=== PATIENT | male | born 1935 | race Caucasian/White ===

== ENCOUNTER 2017-08-24 12:21 | Emergency (ER) | payer OTHER, MEDICARE ==
[~2017-08-24] VITALS: Ht 172.7 cm; Wt 90.7 kg
[~2017-08-24 12:21] MED LIST: ALEVE220 M1; ALEVE220 M1 PO; ALLOPURINOL 30300 M1 PO; ARTIFICIAL TEA1 EACH OP; ARTIFICIAL TEAR15 M1 OPHTHALMIC; ASPIR 8181 MG PO; ATORVASTATIN CA40 MG PO; BISACODYL SUPP10 MG RE; BLADDER MED; CARBIDOPA-LEVO1 EAC9 PO; CELEBREX 200 M200 M1 PO; CELEBREX 200 M200 MG PO; COLACE100 MG PO; COREG3.125 MG PO; COUMADIN 2.5MG2.5 M1 PO; COUMADIN 5 MG TA5 M1 PO; CYMBALTA30 MG PO; CYMBALTA60 MG PO; DEEP SEA NASAL44 M1 NASAL; DESITIN113 GM TOP; DICLOFENAC SOD2.5 ML OP; DOXYCYCLINE 10100 M1 PO; DUONEB 2.5-0.5 M3 ML INH; ENOXAPARIN30 MG/0.3 SUBQ; ENTACAPONE200 M1 PO; FLOMAX0.4 MG PO; FLONASE 0.05%50 MCG NASAL; FOLIC ACID 40400 MC1 PO; FOLIC ACID 40400 MCG PO; GABAPENTIN300 MG PO; GELUSIL TABLET1 EACH PO; GLUCOSAMINE &1 EACH PO; GLUCOSAMINE HC500 MG PO; HYTRIN 2MG CAPSU2 M1 PO; KEFLEX500 M1 PO; KEPPRA 500 MG500 M1 PO; LANOXIN 0.120.125 M1 PO; LASIX 20 MG TAB20 MG PO; LIPITOR80 MG PO; LORATIDINE 10 M10 M1 PO; MIRALAX17 GM PO; MIRALAX255 GM PO; MOM; NEURONTIN 300300 M1 PO; NORCO 10-325 T1 EACH PO; NORCO 5-325 TA1 EACH PO; PERCOCET 7.5-31 EACH PO; PLAVIX 75 MG TA75 M1 PO; PRED-FORTE OPHTH1 M1 OP; PREDNISONE 10 M10 MG PO; PRESERVISION L1 EACH PO; PRESERVISION S1 EACH PO; PRESERVISION T1 EACH PO; REQUIP 0.25 M0.25 MG PO; REQUIP 1 MG TABL1 M1 PO; REQUIP1 MG PO; RESTORIL15 MG PO; SANTYL OINTMENT30 G1 TP; SENNA8.6 MG PO; SINEMET 25-1001 EAC1 PO; SINEMET 25/1001 TAB PO; SORINE 80 MG TA80 MG PO; SOTALOL 120 MG120 M1 PO; SULINDAC 200MG200 M1 PO; TACLONEX OINTME60 GM TP; TYLENOL325 MG PO; VESICARE10 M1 PO; VITAMIN B-12500 MCG PO; VITAMIN D31000 UNI2 PO; VOLTAREN GEL 1100 G2 TOP; XANAX 0.5 MG0.5 MG PO; [UNRECOGNIZED DRUG - OTHER]
[2017-08-24] MEDS ORDERED: LASIX 20 MG TAB20 MG PO (13:28)
[2017-08-24] MEDS ORDERED: SENNA8.6 MG PO (13:38)
[2017-08-24] MEDS ORDERED: HYDROCODONE-AP1 EAC6 PO (13:38)
== END 2017-08-24 14:06 | disposition home or self-care (01) ==
LOC: ER 12:21
DX: S22.31XA Fracture of one rib, right side, initial encounter for closed fracture (principal); E78.00 Pure hypercholesterolemia, unspecified; I48.91 Unspecified atrial fibrillation; F32.9 Major depressive disorder, single episode, unspecified; M10.9 Gout, unspecified; Z95.1 Presence of aortocoronary bypass graft; I11.0 Hypertensive heart disease with heart failure; I50.9 Heart failure, unspecified; M54.9 Dorsalgia, unspecified; G89.29 Other chronic pain; Z96.651 Presence of right artificial knee joint; M19.90 Unspecified osteoarthritis, unspecified site; Z88.1 Allergy status to other antibiotic agents; Z88.2 Allergy status to sulfonamides; Z88.5 Allergy status to narcotic agent; W19.XXXA Unspecified fall, initial encounter; Y93.01 Activity, walking, marching and hiking; Y92.89 Other specified places as the place of occurrence of the external cause; Y99.8 Other external cause status

== ENCOUNTER → 2017-09-25 | Outpatient (CLI) | payer OTHER, MEDICARE ==
[~2017-09-25] MED LIST changes: +HYDROCODONE-AP1 EAC6 PO
== END ==
LOC: CAT 09:14
DX: M25.775 Osteophyte, left foot (principal); I25.10 Atherosclerotic heart disease of native coronary artery without angina pectoris

== ENCOUNTER → 2018-11-10 | Outpatient (CLI) | payer OTHER, MEDICARE ==
[~2018-11-10] MED LIST changes: +CARBIDOPA-LEVO1 EAC6 PO; +GLUCOSAMINE CH1 EA10 PO; +HYDROCODONE-AP1 EA11 PO; +PROBIOTIC1 EAC1 PO; +RESTORIL7.5 MG PO; +VITAMIN B-121000 MCG PO; +VOLTAREN GEL 1100 G2
== END ==
LOC: CAT 13:54
DX: M48.56XA Collapsed vertebra, not elsewhere classified, lumbar region, initial encounter for fracture (principal); M47.26 Other spondylosis with radiculopathy, lumbar region; M48.061 Spinal stenosis, lumbar region without neurogenic claudication

== ENCOUNTER → 2019-03-12 | Day surgery (SDC) | payer OTHER, MEDICARE ==
[~2019-03-12] VITALS: Ht 172.7 cm; Wt 83.5 kg
[~2019-03-12] MED LIST changes: +ARICEPT10 M1 PO; +HYDROCODON-ACE1 EAC8 PO; +TRAZODONE HCL100 MG PO; -VOLTAREN GEL 1100 G2
--- NOTE | ~2019-03-12 | O ---
[facility] [place] [address] OPERATIVE REPORT Name: MARIBELL SUTTON Room #: REG [facility]#: [id number] Admission: 03/12/19 Attend Phys: Gerald Hoyt MD Discharge: Date of : 37 Report #: [id number] THIS REPORT FOR: //name// CC: [facility] physician/PCP Gerald Hoyt DATE OF SERVICE: 03/12/2019 PREOPERATIVE DIAGNOSIS: Left hindfoot osteophyte. POSTOPERATIVE DIAGNOSIS: Left hindfoot osteophyte. PROCEDURE: Left foot osteophyte excision. SURGEON: Dr. Gerald Hoyt. STAFFING CONSULTANT: Gabriella Ray. ANESTHESIA: General. ESTIMATED BLOOD LOSS: Minimal. DRAINS: No drains. TOURNIQUET TIME: 20 minutes. DESCRIPTION OF PROCEDURE: The patient was brought to the operating room where he was placed under general anesthesia. Once under adequate general anesthesia, his left lower extremity was prepped and draped in sterile manner. The extremity was elevated, exsanguinated, tourniquet placed to 250 mmHg. A medial incision 3 cm in length was made overlying the medial hindfoot osteophyte. This was dissected sharply down to the bone, which was then exposed with a 15 blade. Once completely exposed, a sagittal saw was used to resect the osteophyte. Once complete, any other scar tissue at the plantar foot was removed as well with a rongeur. The wound was then irrigated copiously and closed with 2-0 Vicryl in subcutaneous tissues and kristie for the skin. The wounds were dressed with Xeroform, 4 x 4s, and sterile soft compressive dressing was placed. Tourniquet was let down at 15 minutes. Toes were pink and warm with good capillary refill. There were no complications from the procedure. The patient tolerated the procedure well and went to the recovery room without incident. By: [id number] [id number] Gerald Hoyt MD /nt
[2019-03-12 12:00] VITALS: BP 153/76
== END | disposition home or self-care (01) ==
LOC: OR 11:07
DX: M25.775 Osteophyte, left foot (principal); I11.0 Hypertensive heart disease with heart failure; I50.9 Heart failure, unspecified; G62.9 Polyneuropathy, unspecified; I48.91 Unspecified atrial fibrillation; E78.5 Hyperlipidemia, unspecified; G47.30 Sleep apnea, unspecified; G20 Parkinson's disease; M10.9 Gout, unspecified; N40.0 Benign prostatic hyperplasia without lower urinary tract symptoms; M54.5 Low back pain; G89.29 Other chronic pain; Z98.890 Other specified postprocedural states; Z98.42 Cataract extraction status, left eye; Z79.899 Other long term (current) drug therapy; Z95.1 Presence of aortocoronary bypass graft; Z87.891 Personal history of nicotine dependence; Z96.653 Presence of artificial knee joint, bilateral; Z79.01 Long term (current) use of anticoagulants; Z88.2 Allergy status to sulfonamides; Z88.8 Allergy status to other drugs, medicaments and biological substances
CPT/HCPCS: 50010; 50101; 50386; 50951; 51412; 56524; 57091; 57179; 62110; 62900; 70005

== ENCOUNTER → 2019-08-10 | Outpatient (CLI) | payer OTHER, MEDICARE | LOC: SJCVCIMAG 08:28 | PROVIDERS: ATTEND Internal Medicine | DX: I08.3 Combined rheumatic disorders of mitral, aortic and tricuspid valves (principal); I65.23 Occlusion and stenosis of bilateral carotid arteries; R94.31 Abnormal electrocardiogram [ECG] [EKG]; I48.21 Permanent atrial fibrillation; I11.0 Hypertensive heart disease with heart failure; I50.32 Chronic diastolic (congestive) heart failure; G20 Parkinson's disease; G47.33 Obstructive sleep apnea (adult) (pediatric); E78.5 Hyperlipidemia, unspecified; I25.810 Atherosclerosis of coronary artery bypass graft(s) without angina pectoris; Z95.1 Presence of aortocoronary bypass graft; Z79.82 Long term (current) use of aspirin; Z79.899 Other long term (current) drug therapy; Z87.891 Personal history of nicotine dependence ==

== ENCOUNTER 2019-12-15 23:02 | Inpatient (IN) | payer OTHER, MEDICARE ==
[~2019-12-15] VITALS: Ht 172.7 cm; Wt 81.9 kg
--- NOTE | ~2019-12-15 | EMS ---
[address] [address] EMS Patient Care Report Name: MARIBELL SUTTON Room #: REG FELI Slainas#: [id number] Admission: 12/15/19 Attend Phys: Discharge: Date of : 37 Report #: [id number] THIS REPORT FOR: //name// Report Transmitted: 12/15/2019 23:35 EMS Care Summary [facility] MED-ACT Incident [id number] @ 12/15/2019 21:57 Incident Location [address] [place] [address] Patient MARIBELL SUTTON Male, 85 Years 1934-05-21 Patient Address [address] [place] [address] Patient History Hypertension (HTN),Parkinson's Disease,Atrial Fibrillation, Patient Allergies Other drug allergy, Patient Medications Cholecalciferol, Aspirin, Carbidopa, Atorvastatin, Bacitracin, Lanoxin, Trazodone, Temazepam, Tramadol, Hydrocodone, Cyanocobalamin Co57, Tamsulosin, Donepezil, Sertraline, Gabapentin, Lidocaine, Voltaren, Senna, Loratadine, Chief Complaint "I am so weak" Disposition Transported No Lights/Benld Dispatch Reason Psychiatric Problem/Abnormal Behavior/Suicide Attempt Transported To [facility] Narrative 85yom found sitting upright on edge of bed, in care of family, attempting to use a urinal upon EMS arrival. Family was reporting that pt has become more and [address] [address] EMS Patient Care Report Name: MARIBELL SUTTON [id number] Admission: 12/15/19 Attend Phys: Discharge: Date of : 37 Report #: [id number] more weak today and now is unable to care for himself. Family stated that they are associating his weakness and hallucinations to a recent change to his medication which was adding tramadol to his list. Family also reports "excessive drinking and urinating." Upon initial exam, pt is awake, tracking, and following basic commands, but is only alert to place/person. Pt's main complaint was global weakness/lethargy which he agreed had started today. Pt also reported that he has had the feeling of needing to urinate, but is unable to empty is bladder every time. Family reported he has had 3 episodes of incontinence in bed which is abnormal. Family informed EMS that pt has been unable to eat today and has only drank a "little bit of fluids." Pt denied any chest pain, SOB, N/V/D, diaphoresis, headache, blurry/double vision, and denied his families reports of having hallucinations. Family reported that pt is normally able to ambulate on his own, get himself out of bed, and make it up the 2 flights of stairs to his bedroom on his own, utilizing his walkers. Pt is not unable to stand without significant assistance. Pt is also unable to ambulate and requires assistance of EMS/Fire to carry him to different moving devices. Pt was moved to his seated walker and rolled to electric stair chair where he was positioned and moved down 1 small flight of stairs. Pt was then team lifted and placed on a second electric stair chair where he was moved down 1 more flight of stairs. Pt was placed on EMS stair chair and moved outside to awaiting cot without incident. Pt was secured with straps before being moved to ambulance. EMS spoke with family who reported not written living will/DNR status. Basic vital signs, EKG, 12 Lead, IV, and bG obtained prior to departure. 450mL fluid bolus administered en route with improvement to pts LOC and blood pressure. Pt's behavior and LOC improved greatly throughout EMS transport. Hospital was contacted with pt information only. 12 Lead obtained x2 showing ST Depression in V2, V3, and V4. Initial 12 Lead was transmitted to [facility] ER with verbal confirmation of receiving 12 Lead. Pt was not given ASA due to not having his teeth in place and unable to chew tablets. Pt takes 81mg of ASA a day and is also on a blood thinner. Upon arrival to ER, pt is alert and oriented, vital signs as noted, with improvement to this complaint. Pt reported that he "feels better." Pt care was transferred to ER staff in ER RM 12 without incident. Initial Vitals @22:41P: 119,SpO2: 93, @22:49P: 113,BP: 144/53,SpO2: 94, @22:32P: 114,R: 16,BP: 93/60,Pain: 0/10,GCS: 15,Revised Trauma: 12, @22:31P: 120,SpO2: 82,[place] Suspected: false @22:33P: 127,SpO2: 76, @22:38P: 109,SpO2: 93,[place] Suspected: false [address] [address] EMS Patient Care Report Name: MARIBELL SUTTON Room #: [facility].R.#: [id number] Admission: 12/15/19 Attend Phys: Discharge: Date of : 37 Report #: [id number] @22:58P: 107,R: 16,BP: 100/62,GCS: 15,Glucose: 107,SpO2: 94,Revised Trauma: 12, @22:55P: 116,SpO2: 94,[place] Suspected: false @22:07P: 130,R: 16,BP: 90/60,GCS: 15,SpO2: 85,Revised Trauma: 12, Assessments @22:05MENTAL:Person Oriented,Time Oriented,Event Oriented,Place Oriented,SKIN:Hot,HEENT:Head/Face: No Abnormalities,LUNG SOUNDS:General: No Abnormalities,ABDOMEN:General: No Abnormalities,PELVIS//GI:No Abnormalities,EXTREMITIES:Left Arm: No Abnormalities,Right Arm: No Abnormalities,Left Leg: No Abnormalities,Right Leg: No Abnormalities,PULSE:Radial: 2+ Normal,NEURO:No Abnormalities, Impression Generalized Weakness Procedures @22:05ALS AssessmentResponse: UnchangedSucceeded@22:3812-Lead ECG@22:31Normal Saline (.9% NaCl) 450cc (18 ga) Site: Forearm-RightResponse: UnchangedSucceeded@22:5512-Lead ECG@22:40ECG TransmittedResponse: Unchanged@22:35Oxygen FlowRate: 5 Device: Nasal Cannula (NC) Response: ImprovedSucceeded@22:36Surgical Mask on PatientResponse: Unchanged Timeline 21:55,Call Received 21:55,Psap Call 21:57,Dispatched 21:57,En Route 22:04,On Scene 22:04,At Patient 22:05,ALS Assessment,Response: UnchangedSucceeded, 22:07,BP: 90/60 M,PULSE: 130,RR: 16 R,SPO2: 85 Ox,ETCO2: ,BG: ,PAIN: ,GCS: 15, 22:31,Normal Saline (.9% NaCl) 450cc 18 ga Site: Forearm-Right,Response: UnchangedSucceeded, 22:31,BP: / M,PULSE: 120,RR: R,SPO2: 82 Ox,ETCO2: ,BG: ,PAIN: ,GCS: , 22:32,BP: 93/60 M,PULSE: 114,RR: 16 R,SPO2: Ox,ETCO2: ,BG: ,PAIN: 0,GCS: 15, 22:33,BP: / M,PULSE: 127,RR: R,SPO2: 76 Ox,ETCO2: ,BG: ,PAIN: ,GCS: , 22:35,Oxygen FlowRate: 5 Device: Nasal Cannula (NC) Response: ImprovedSucceeded, 22:36,Surgical Mask on Patient,Response: Unchanged 22:38,12-Lead ECG, 22:38,BP: / M,PULSE: 109,RR: R,SPO2: 93 Ox,ETCO2: ,BG: ,PAIN: ,GCS: , 22:40,ECG Transmitted,Response: Unchanged 22:40,Depart Scene 22:41,BP: / M,PULSE: 119,RR: R,SPO2: 93 Ox,ETCO2: ,BG: ,PAIN: ,GCS: , 22:49,BP: 144/53 M,PULSE: 113,RR: R,SPO2: 94 Ox,ETCO2: ,BG: ,PAIN: ,GCS: , 22:55,12-Lead ECG, 22:55,BP: / M,PULSE: 116,RR: R,SPO2: 94 Ox,ETCO2: ,BG: ,PAIN: ,GCS: , [address] [place] [address] EMS Patient Care Report Name: MARIBELL SUTTON [facility] [id number] Admission: 12/15/19 Attend Phys: Discharge: Date of : 37 Report #: [id number] 22:58,BP: 100/62 M,PULSE: 107,RR: 16 R,SPO2: 94 Ox,ETCO2: ,B,PAIN: ,GCS: 15, 22:59,At Destination 23:29,Call Closed Disclaimer v1.1 Copyright 2020 [employer] This EMS Care Summary contains data elements from the applicable legal record (which may be displayed differently). It is designed to provide pertinent information for the following purposes: continuity of care, clinical quality, and state data reporting. The complete legal record is available to ED staff and administrators of the receiving hospital in [facility]'s Patient Tracker. All data is provided "as is."
[2019-12-15 23:03] VITALS: BP 98/59
[2019-12-15] MEDS ORDERED: VITAMIN B-121000 MC2 SUBLING (23:13)
[2019-12-15] MEDS ORDERED: GLUCOSAMINE &1 EACH PO (23:15)
[2019-12-15] MEDS ORDERED: SENNA PLUS TAB1 EACH PO (23:16)
[2019-12-15] MEDS ORDERED: RESTORIL7.5 M1 PO (23:18)
[2019-12-15] MEDS ORDERED: ZOLOFT100 MG PO (23:19)
[2019-12-15 23:45] LABS: URINE BILIRUBIN NEGATIVE (Negative); URINE BLOOD NEGATIVE (Negative); URINE CLARITY CLEAR; URINE COLOR YELLOW; URINE GLUCOSE-RANDOM* NEGATIVE (Negative); URINE KETONES NEGATIVE (Negative); URINE LEUKOCYTES-REFLEX NEGATIVE (Negative); URINE NITRITE-REFLEX NEGATIVE (Negative); URINE PROTEIN (DIPSTICK) 2+ (Negative); URINE SPECIFIC GRAVITY 1.025 (1.005-1.035); URINE UROBILINOGEN 0.2 E.U./dl (0.2-1.0)
[2019-12-15 23:49] LABS: HEMATOCRIT 38.2 % (42.0-52.0); HEMOGLOBIN 12.3 gm/dL (14.0-18.0); MCH 32.7 pg (26.0-34.0); MCHC 32.2 g/dL (28.0-37.0); MCV 101.6 fL (80.0-100.0); PLATELET COUNT 356 thou/uL (150-400); RBC 3.76 mil/uL (4.50-6.00); RDW 16.8 % (10.5-14.5); WBC 21.4 thou/uL (4.0-11.0)
[2019-12-15 23:52] LABS: ANION GAP 15 mmol/L (7-16); BUN 45 mg/dL (7-18); CALCIUM 8.6 mg/dL (8.5-10.1); CHLORIDE 102 mmol/L (98-107); CO2 23 mmol/L (21-32); CREATININE 2.3 mg/dL (0.7-1.3); GLUCOSE 98 mg/dL (74-106); POTASSIUM 4.2 mmol/L (3.5-5.1); SODIUM 140 mmol/L (136-145)
[2019-12-15 23:58] LABS: BACTERIA-REFLEX 1-9 Few /HPF (None Seen); CRYSTALS None Seen /LPF (None Seen); HYALINE CASTS 4-10 Moderate /LPF (None Seen); MUCUS 4-6 Moderate strn/LPF (None Seen); SQUAMOUS 4-10 Moderate /LPF (0-3); URINE RBC 0-2 Rare /HPF (0-2); URINE WBC-REFLEX 0-5 Rare /HPF (0-5)
[2019-12-16 00:01] LABS: ALBUMIN 3.3 g/dL (3.4-5.0); SGOT 26 U/L (15-37); SGPT 9 U/L (30-65); TOTAL BILIRUBIN 1.1 mg/dL (0.2-1.0); TOTAL PROTEIN 7.2 g/dL (6.4-8.2); TROPONIN-I <0.06 ng/mL (<0.06)
[2019-12-16 01:18] LABS: ABSOLUTE NEUTROPHILS 17.3 thou/uL (1.4-8.2)
[2019-12-16 01:19] LABS: ANISOCYTOSIS 1+; PLATELET ESTIMATE NORMAL; POIKILOCYTOSIS 1+
[2019-12-16 02:39] LABS: TSH 0.75 uIU/mL (0.358-3.740)
--- NOTE | 2019-12-16 08:40 | EKG ---
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[facility] 1935 Requested By: Anthony Morales Order Number: [id number] MD: Yobani Epstein Measurements Intervals [place] Rate: 118 P: IA: QRS: -2 QRSD: 103 T: 176 QT: 299 QTc: 420 Interpretive Statements Atrial fibrillation Repol abnrm suggests ischemia, anterolateral Compared to ECG 10/01/2015 22:19:41 ST and T wave abnormality is more pronounced Electronically Signed On 12-16-2019 8:40:22 CDT by Yobani Epstein [email or web address] <ELECTRONICALLY SIGNED> By: Yobani Epstein MD, [facility] 12/16/19 0840 04 Yobani Epstein MD, [facility] /EPI
--- NOTE | 2019-12-16 08:41 | EKG ---
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: [facility] : 1935 Requested By: Anthony Morales Order Number: [id number] MD: Yobani Epstein Measurements Intervals [place] Rate: 123 P: TN: QRS: -26 QRSD: 110 T: 164 QT: 300 QTc: 429 Interpretive Statements Atrial fibrillation Inferior infarct, old Probable lateral infarct, age indeterminate Compared to ECG 10/01/2015 22:19:41 Lateral Q waves are now present Electronically Signed On 12-16-2019 8:40:58 CDT by Yobani Epstein [email or web address] <ELECTRONICALLY SIGNED> By: Yobani Epstein MD, FAC 12/16/19 0840 09 Yobani Epstein MD, [facility] /EPI
[2019-12-16 08:48] VITALS: BP 118/70
[2019-12-16 09:29] LABS: HEMATOCRIT 38.2 % (42.0-52.0); HEMOGLOBIN 12.2 gm/dL (14.0-18.0); MCH 33.1 pg (26.0-34.0); MCV 103.3 fL (80.0-100.0); PLATELET COUNT 323 thou/uL (150-400); RBC 3.69 mil/uL (4.50-6.00); RDW 16.7 % (10.5-14.5)
[2019-12-16 11:11] LABS: ABSOLUTE NEUTROPHILS 18.4 thou/uL (1.4-8.2); ANISOCYTOSIS 1+; MACROCYTES 1+; PLATELET ESTIMATE NORMAL
[2019-12-16 19:37] VITALS: BP 112/49
--- NOTE | 2019-12-16 19:37 | NUR ---
Hand-off sent to CCU.
[2019-12-16 19:45] VITALS: BP 121/62
[2019-12-16 20:00] VITALS: BP 123/61
[2019-12-16 23:56] VITALS: BP 101/45
--- NOTE | 2019-12-17 02:06 | NUR ---
PATIENT TRANSFERRED FROM ED AT APPROXIMATELY 1999. ASSESSMENT/ADMISSION COMPLETED TO BEST OF ABILITY DUE TO PATIENT COGNITION/AMS. PATIENT DENIES PAIN AT ASSESSMENTS. NO S/S OF RESPIRATORY DISTRESS. PATIENT ON 4.0L OXYGEN VIA NC, BUT PATIENT DOES REMOVE OXYGEN FREQUENTLY. NO SOA OBSERVED WHEN THIS OCCURS. WILL CONTINUE TO MONITOR.
[2019-12-17 03:30] VITALS: BP 141/54
[2019-12-17 05:43] LABS: HEMATOCRIT 32.8 % (42.0-52.0); HEMOGLOBIN 10.5 gm/dL (14.0-18.0); MCH 33.2 pg (26.0-34.0); MCHC 32.1 g/dL (28.0-37.0); MCV 103.2 fL (80.0-100.0); RBC 3.17 mil/uL (4.50-6.00); RDW 16.6 % (10.5-14.5); WBC 13.7 thou/uL (4.0-11.0)
[2019-12-17 05:50] LABS: CALCIUM 8.5 mg/dL (8.5-10.1); POTASSIUM 3.7 mmol/L (3.5-5.1)
[2019-12-17 07:50] VITALS: BP 151/57
[2019-12-17 11:11] VITALS: BP 126/60
--- NOTE | 2019-12-17 13:54 | HC ---
[facility] [place] [address] CONSULTATION Name: MARIBELL SUTTON Room #: 207-P [facility] [place] ..#: [id number] Admission: 12/16/19 Attend Phys: Fernando Wallis MD Discharge: Date of : 37 Report #: [id number] THIS REPORT FOR: cc: ELBA - Benita family physician/PCP ELBA - No family physician/PCP Esequiel Nielsen MD ~ DATE OF SERVICE: 12/16/2019 INFECTIOUS DISEASE CONSULTATION ATTENDING PHYSICIAN: Dr. Liu. REASON FOR EVALUATION: Pneumonitis. HISTORY OF SUBJECTIVE: Chart reviewed, the patient examined. This is an 84-year-old with extensive medical history, was admitted through the Emergency Room. Reportedly, he had progressive weakness over the last 2 days prior to admission. He apparently had altered mental status with hallucinations, developed a mild cough and progressive dyspnea. He was found to have oxygen saturations of 83% on room air. He has been placed on supplemental oxygen at 5 liters. He has had reasonably adequate blood sugars. He did have low-grade temperature elevation to 99.6 initially. This has been recorded as high as 100.8. Additional evaluation including imaging, which raised a question of some basilar pneumonitis. He was found to have an unremarkable urinalysis. Lactic acid 1.4. COVID testing x 2 was negative and a normal procalcitonin of 0.28. Influenza antigen was negative as well. He was empirically started on combination therapy with levofloxacin, Zosyn. At this point, he is still quite confused. He was unable to give any additional history. He states he thought his pulse was fast, had been given some fluids for presumed dehydration. Cultures of the blood in progress. ALLERGIES: SULFA, LISINOPRIL, OXYCODONE. CURRENT MEDICATIONS: Include Sinemet, trazodone, tamsulosin, aspirin, atorvastatin, Levaquin, carvedilol, allopurinol, sertraline, loratadine, digoxin, clopidogrel, metoprolol, pantoprazole, Zosyn, donepezil. PAST MEDICAL HISTORY: Includes history of known coronary artery disease with previous aortocoronary bypass grafting 25 years ago, history of hypertension, high cholesterol, peripheral neuropathy, atrial fibrillation, history of depression, sleep apnea, on CPAP, Parkinson's, gout, BPH, chronic back pain, has cardiomyopathy with congestive heart failure, history of previous splenectomy. SOCIAL HISTORY: Former smoker, occasional ethanol, no illicit drug use. [address] [address] CONSULTATION Name: HERMANMARIBELL Eliezer Room #: 207-P [facility] IN ..#: [id number] Admission: 12/16/19 Attend Phys: Fernando Wallis MD Discharge: Date of : 37 Report #: [id number] FAMILY HISTORY: Noncontributory. REVIEW OF SYSTEMS: Somewhat limited due to his confusion. PHYSICAL EXAMINATION: GENERAL: He appears chronically ill, undernourished. VITAL SIGNS: Temperature 100.8 earlier today, pulse 81, respirations 22, blood pressure 113/67, saturations 93% on supplemental oxygen. SKIN: Warm, dry, no rashes. HEENT: Normocephalic. Extraocular muscles intact. NECK: Supple. LUNGS: Scattered coarse breath sounds. HEART: Regular with some ectopy, I do not appreciate a murmur. ABDOMEN: Otherwise, soft, no apparent tenderness. There are no peritoneal signs. GENITOURINARY AND RECTAL: Deferred. LABORATORY DATA: Influenza antigen was negative. COVID testing negative. CBC elevated at 23.0, H and H 12.2 and 38.2, platelets 323. Did have a 78% segmented neutrophils, 2% bands noted. MCV elevated at 103.3. Chest x-ray, increased basilar densities. Sed rate is 58. TSH of 0.750, ferritin of 162. D-dimer elevated at 3.09. Lactic acid 1.4. ProBNP of 1494. Electrolytes: Sodium 140, potassium 4.2, chloride 102, bicarbonate is 23, anion gap of 15, BUN and creatinine 45 and 2.3, glucose of 98. AST of 26, ALT of 9. Albumin of 3.3. Total protein 7.2. Urinalysis was otherwise unremarkable. ASSESSMENT: Pneumonitis associated with encephalopathy, significant leukocytosis. Agree with empiric antimicrobial therapy. I think it is a reasonable regimen, adjusted for his renal insufficiency. Continue hydration and supportive measures including supplemental oxygen. I doubt he is going to be able to produce any sputum at this point, check some urinary antigens. Surveillance for MRSA. He remains quite tenuous at this point. Continue to monitor expectantly. Overall, prognosis appears somewhat guarded. <ELECTRONICALLY SIGNED> By: Esequiel Nielsen MD 12/17/19 1354 [id number] 47 Esequiel Nielsen MD /nt
[2019-12-17 15:50] VITALS: BP 127/53
--- NOTE | 2019-12-17 16:14 | NUR ---
ASSUMED CARE AT CHANGE OF SHIFT. ALERT X4, HX OF PARKINSON, DENIES PAIN, DENIES SOB, 2L NASAL CANNULA, COARSE LUNGS WITH CONGESTED COUGH. VOID PER COMMODE OR TOILET, LARGE HARD STOOL TODAY WITH ORDERS FOR DAILY STOOL SOFTNER. AX1 WITH WALKER. MEDS GIVEN PER ORDERS. FALL PRECATIONS IN PLACE. CALLS FOR ASSISTANCE.
--- NOTE | 2019-12-17 16:57 | NUR ---
chart review. cm visited with polina via phone call, intro to cm and dcp. bedside nurse gave him phone in room so cm could have vol turned up on the phone to here. cm called pt and no answer. polina reported they live in house, with 5 steps enter, then 3 level home. has a stair glide. has walker and wheel chair. uses shower chair when showers him self. helps with medication. been to rehab in past and hh in past, unable to remember where and who it was with. daughter and son live in area. i [facility] no [facility]. noted from chart he been to [facility] in the past. cm visited with bedside nurse reported he has diff getting up and his weak, he could benefit from rehab. 5 N consult. pt agree with rehab or hh. will cont following as needed for dc needs.
[2019-12-17 19:40] VITALS: BP 139/55
[2019-12-18 04:32] VITALS: BP 167/56
--- NOTE | 2019-12-18 05:05 | NUR ---
ASSUMED PATIENT CARE AT 1845. VITAL SIGNS STABLE WITH PATIENT HAVING NO COMPLAINTS OF PAIN OR NAUSEA. MOSTLY ORIENTED, PATIENT WAS PLEASANTLY CONFUSED AT TIMES. BREATHING STABLE ON OXYGEN EVIDENCED BY ASSESSMENTS AND SPOT OXYGENATION CHECKS. UP WITH ASSISTANCE INCIDENT FREE, PATIENT IS CONSIDERED A HIGH FALL RISK. CONTINUE PLAN OF CARE.
[2019-12-18 07:55] VITALS: BP 144/72
[2019-12-18 08:05] LABS: HEMATOCRIT 33.8 % (42.0-52.0); HEMOGLOBIN 10.8 gm/dL (14.0-18.0); MCHC 32.1 g/dL (28.0-37.0); MCV 102.6 fL (80.0-100.0); RBC 3.29 mil/uL (4.50-6.00); RDW 16.3 % (10.5-14.5); WBC 13.4 thou/uL (4.0-11.0)
[2019-12-18 09:48] LABS: CALCIUM 8.3 mg/dL (8.5-10.1); CREATININE 1.3 mg/dL (0.7-1.3); POTASSIUM 3.9 mmol/L (3.5-5.1)
--- NOTE | 2019-12-18 11:14 | NUR ---
ASSUMED CARE OF PT AT SHIFT CHANGE, MAVERICK, ASKED TO HAVE CONDOM CATH REMOVED,YELLED FOR ME TO REMOVE. 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 WITH GREAT ASSISTANCE, AND WARINESS ON PT'S PART, HE IS MOVED UP TO CHAIR WITH GAIT AND WALKER, WON'T STAY IN THE CHAIR. COMM W/PHYSICIAN EARLY TO ASK FOR PAIN MEDICATION FOR HIS CHRONIC BACK AND R HIP PAIN. LITTLE APPTETITE, WEANED OFF 02. MOVED BACK TO BED WITH THREE ASSIST, PT UPSET WITH THIS WELL. PHYSICIAN STATES HE CAN MOVE TO 5N WHEN ABLE, CM STATES THEY SENT CONSULT. WILL CONTINUE TO MONITOR. A&0X2-4 DEPENDING ON HIS ANSWERS/MOOD. SEE SEPARATE INTERVENTION FOR ASSESSMENT. TURN Q2 MUCH HE ALLOWS, WHICH IS ONLY ABOUT 60% OF THE TIME.
[2019-12-18 11:23] VITALS: BP 140/66
--- NOTE | 2019-12-18 12:41 | 2DMMODE ---
[facility] [place] [address] 2 D/M-MODE ECHOCARDIOGRAM Name: MARIBELL SUTTON Room #: 207-P ADM IN M.R.#: [id number] Admission: 12/16/19 Attend Phys: Fernando Wallis MD Discharge: Date of : 37 Report #: [id number] THIS REPORT FOR: cc: FAM - No family physician/PCP FAM - No family physician/PCP Juan Lopez MD ~ APPROVED REPORT Study performed: 12/18/2019 08:17:36 EXAM: Limited 2D, Doppler, and color-flow Echocardiogram Patient Location: Bedside Room #: 207 Status: on-call BSA: 1.94 HR: 74 bpm BP: 142/70 mmHg Rhythm: Atrial Fibrillation Other Information Study Quality: Adequate Indications Limited follow up echo for Respiratory failure. Afib. Hx: CABG, Afib, watchman, HTN, HLP. (Complete echo done 07/2019) Aortic Valve AoV Peak Raymon.: 2.33 m/s AO Peak Gr.: 21.79 mmHg AO Mean Gr.: 10.59 mmHg AO V2 Mean: 1.52 m/s AO V2 VTI: 48.33 cm Tricuspid Valve TR Peak Raymon.: 3.29 m/s RAP Estimate: 10.00 mmHg TR Peak Gr.: 43.37 mmHg PA Pressure: 53.00 mmHg Left Ventricle There is normal LV segmental wall motion. Left ventricular systolic function is normal. LVEF is 55%. This study is not technically sufficient to allow evaluation of the LV diastolic function due to atrial fibrillation. [facility] [address] [place] [address] 2 D/M-MODE ECHOCARDIOGRAM Name: MARIBELL SUTTON Room #: 207-P [facility] [place] ..#: [id number] Admission: 12/16/19 Attend Phys: Daniela Downey Discharge: Date of : 37 Report #: [id number] Right Ventricle The right ventricular systolic function is normal. Atria Left atrium is severely dilated. Right atrium is moderately dilated. Aortic Valve Aortic valve is moderately calcified. Mild to moderate aortic regurgitation. Mild aortic stenosis. Peak gradient of 22mmHg, Mean gradient 11mmHg. Mitral Valve Mitral valve leaflets are mildly thickened and calcified. Mild mitral annular calcification. Moderate mitral regurgitation. Tricuspid Valve The tricuspid valve is normal in structure. Moderate tricuspid regurgitation. Estimated PAP is 50-55mmHg. Great Vessels IVC is dilated and collapses <50% with inspiration. Pericardium There is no pericardial effusion. <Conclusion> Left ventricular systolic function is normal. LVEF is 55%. The right ventricular systolic function is normal. Left atrium is severely dilated. Right atrium is moderately dilated. Aortic valve is moderately calcified. Mild to moderate aortic regurgitation. Mild aortic stenosis. Peak gradient of 22mmHg, Mean gradient 11mmHg. Mitral valve leaflets are mildly thickened and calcified. Mild mitral annular calcification. Moderate mitral regurgitation. There is no pericardial effusion. <ELECTRONICALLY SIGNED> By: Juan Lopez MD 12/18/19 [phone] 40 Juan Lopez MD /INF
[2019-12-18 15:08] VITALS: BP 110/46
[2019-12-18 19:00] VITALS: BP 127/67
--- NOTE | 2019-12-19 03:34 | NUR ---
ASSUMED CARE OF PATIENT AT 1900. PATIENT ON RA WITH OXYGEN SATS IN 90s. NO SOA NOTED DURING ACTIVITY. PATIENT CONFUSED/IMPULSIVE DURING THE NIGHT AND DID NOT CALL APPROPRIATELY. PATIENT PULLED BRIEF APART AND THREW IT ALL OVER ROOM. PATIENT UNAWARE THAT THIS OCCURED.
[2019-12-19 08:29] VITALS: BP 148/71
[2019-12-19 12:02] VITALS: BP 122/59
[2019-12-19 16:17] VITALS: BP 152/77
--- NOTE | 2019-12-19 18:18 | NUR ---
ASSUMED CARE OF PT AT SHIFT CHANGE. ASSESSMENTS CHARTED. MEDS GIVEN PER APR. PT A&OX4, BUT FORGETFUL. NO C/O OF SOA OR PAIN. PT CALM AND APPROPRIATE ALL SHIFT. WILL CONTINUE TO MONITOR AND FOLLOW POC.
[2019-12-19 20:01] VITALS: BP 137/71
[2019-12-20 04:54] VITALS: BP 161/73
--- NOTE | 2019-12-20 05:50 | NUR ---
assumed pt care at the change of shift, pt is awake, alert and orientedx3, afib on the monitor, assessments as charted, meds given as per apr, remains on room air, no issues noted, will continue to monitor
[2019-12-20 08:15] VITALS: BP 143/68
[2019-12-20 09:05] VITALS: BP 161/73
[2019-12-20] MEDS ORDERED: AMOX TR-K CLV1 EAC4 PO (11:19)
[2019-12-20] MEDS ORDERED: PROTONIX 20 MG20 M1 PO (11:19)
[2019-12-20] MEDS ORDERED: CARVEDILOL3.125 MG PO (11:19)
--- NOTE | 2019-12-20 16:23 | NUR ---
assessment as charted . meds as per apr - no co's of pain or nausea. maddie diet and fluids. seen by pt and ot therapy this am - up to the chair - maddie well. pt remains incontinent. spoke with and daughter via phone this afternoon. pt transfered to rehab - sent with [facility] hearing aides x 2 placed in container and sent with patient as were glasses. report called to receiving nurse. left unit via wheelchiar. no co's at time of transfer.
--- NOTE | 2019-12-20 17:47 | NUR ---
Patient evaled for [facility] and accepted plan dc to 5[facility] today.
--- NOTE | 2019-12-27 14:10 | NUR ---
VULCANIZING PRESS OPERATOR CONTACTED DR DUONG'S OFFICE (NEUROLOGY DEPARTMENT AT [facility]) AND RECEIVED A CALL BACK FROM MAIKOL MCKEON WHO STATED THAT IT WOULD BE FINE TO TURN OFF THE DBS DURING VITAL STIM TREATMENTS BUT RECOMMENDED I SPEAK WITH THE [employer] ENOLOGIST FIRST. SHE ALSO RECOMMENDED WE SPEAK WITH DR KAUFMAN'S OFFICE (NEUROSURGERY) TO MAKE SURE WE ARE CLEARED TO DO SO FROM THEIR STAND POINT. I CALLED DR KAUFMAN'S OFFICE AND SPOKE WITH THE PHYSICIAN FIVE PIECE EXPANSION MAKER HAND WHO STATED HE SHOULD BE SAFE IF TURNING THE DEVICE OFF DURING TREATMENTS BUT ALSO RECOMMENDED A CALL TO THE REPRESENTIVE WHO PROVIDED THE DEVICE. LEFT MESSAGE FOR LEILANI AT [employer] . AWAITING RETURN CALL.
== END 2019-12-20 16:27 | DRG 871 ==
LOC: ER 23:02 → EROBS 12-16 01:12 → 2N 12-16 01:12
PROVIDERS: Emergency Medicine; Internal Medicine; Nurse Practitioner Family; ADMIT Hospitalist; ATTEND Hospitalist
DX: A41.9 Sepsis, unspecified organism (principal); J18.9 Pneumonia, unspecified organism; J96.01 Acute respiratory failure with hypoxia; G93.41 Metabolic encephalopathy; N17.9 Acute kidney failure, unspecified; I42.9 Cardiomyopathy, unspecified; I48.21 Permanent atrial fibrillation; I50.32 Chronic diastolic (congestive) heart failure; E87.0 Hyperosmolality and hypernatremia; R65.20 Severe sepsis without septic shock; E86.0 Dehydration; G20 Parkinson's disease; I25.10 Atherosclerotic heart disease of native coronary artery without angina pectoris; E78.5 Hyperlipidemia, unspecified; G47.33 Obstructive sleep apnea (adult) (pediatric); F32.9 Major depressive disorder, single episode, unspecified; M10.9 Gout, unspecified; I11.0 Hypertensive heart disease with heart failure; E78.00 Pure hypercholesterolemia, unspecified; G62.9 Polyneuropathy, unspecified; N40.0 Benign prostatic hyperplasia without lower urinary tract symptoms; G89.29 Other chronic pain; M54.9 Dorsalgia, unspecified; G40.909 Epilepsy, unspecified, not intractable, without status epilepticus; F02.80 Dementia in other diseases classified elsewhere, unspecified severity, without behavioral disturbance, psychotic disturbance, mood disturbance, and anxiety; D64.9 Anemia, unspecified; Z20.828 Contact with and (suspected) exposure to other viral communicable diseases; Z96.653 Presence of artificial knee joint, bilateral; Z96.1 Presence of intraocular lens; Z95.1 Presence of aortocoronary bypass graft; Z98.42 Cataract extraction status, left eye; Z79.82 Long term (current) use of aspirin; Z87.891 Personal history of nicotine dependence; Z79.899 Other long term (current) drug therapy; Z79.01 Long term (current) use of anticoagulants; Z88.2 Allergy status to sulfonamides; Z88.8 Allergy status to other drugs, medicaments and biological substances
CPT/HCPCS: 10081

== ENCOUNTER 2019-12-20 13:58 | Inpatient (IN) | payer OTHER, MEDICARE ==
[~2019-12-20] VITALS: Ht 177.8 cm; Wt 80.5 kg
--- NOTE | ~2019-12-20 | H ---
[facility] [place] [address] HISTORY AND PHYSICAL Name: MARIBELL SUTTON Room #: 504-1 ADM IN M.R.#: [id number] Admission: 12/20/19 Attend Phys: Chang Dwyer MD Discharge: Date of : 37 Report #: [id number] THIS REPORT FOR: cc: ELBA - No family physician/PCP ELBA - No family physician/PCP Chang Dwyer MD ~ CC: Chang ARREOLA physician/PCP DATE OF SERVICE: 12/21/2019 HISTORY AND PHYSICAL POST-ADMISSION PHYSICIAN EVALUATION HISTORY AND PHYSICAL HISTORY OF PRESENT ILLNESS: The patient was admitted for acute in-hospital inpatient rehabilitation. Please see the full history and physical documentation. Agree with the documentation as noted. He originally was admitted to [facility] on 12/15/2019 with weakness and shortness of breath. He was diagnosed with acute hypoxic respiratory failure secondary to pneumonia, atrial fibrillation with rapid ventricular rate, acute renal insufficiency secondary to dehydration and acute encephalopathy. He has had multiple crm consultant physicians that have been involved as noted. He does have premorbid Parkinson's disease and has a deep brain stimulator and is maintained on Sinemet and managed by an outpatient neurologist. He was noted to be debilitated with decreased function with his multiple medical comorbidities. Further complicating his Parkinson's disease. Again, please see the past medical history, social history. ALLERGIES: HE DOES HAVE MULTIPLE ALLERGIES NOTED. MEDICATIONS: See the MAR. HABITS: No history of tobacco or alcohol abuse. REVIEW OF SYSTEMS: As documented. He denied any chest pain, shortness of breath, abdominal discomfort. Please see the full review of system is noted. PHYSICAL EXAMINATION: Agree as documented. GENERAL: He is pleasant, alert, oriented. VITAL SIGNS: Vitals are as documented. Temperature 36.3, pulse 63, respirations 18, blood pressure 157/78. HEENT: Facies appeared symmetric. He may have some evidence of masked facies. He is pleasant, follows basic 1 step commands. There is a definite latency to his responses. He has a pleasant affect. HEENT: Otherwise appeared benign. NECK: No lymphadenopathy. CHEST: Sounded clear to auscultation. [facility] [address] [place] [address] HISTORY AND PHYSICAL Name: MARIBELL SUTTON Room #: 504-1 ADM IN .R.#: [id number] Admission: 12/20/19 Attend Phys: Chang Dwyer MD Discharge: Date of : 37 Report #: [id number] CARDIOVASCULAR: Regular rate and rhythm. ABDOMEN: Bowel sounds positive, nontender. GENITOURINARY AND RECTAL: Deferred. EXTREMITIES: Functional range of motion of the upper extremities. He has significant degenerative arthritic changes, especially of his fingers. He does have some resting tremor of both upper extremities. Some decreased range of motion of the left upper extremity, which is premorbid. Strength is probably a grade 3+/5. Lower extremities strength is probably a grade 3+ to 4-/5. DTRs are trace to 1. No focal calf swelling, trace distal edema. He is min to mod assist, sit to stand and is ambulating a short distance with a front-wheeled walker. ASSESSMENT: An 84-year-old white male with the following problem list: 1. Acute metabolic encephalopathy. 2. Parkinson's disease with deep brain stimulator. 3. Acute hypoxic respiratory failure secondary to pneumonia. 4. Atrial fibrillation with rapid ventricular rate, now rate controlled. 5. Acute renal insufficiency, resolved. 6. Degenerative arthritis with history of prior total knee replacement. 7. Hypertension, hyperlipidemia, coronary artery disease with history of coronary artery bypass grafting. PLAN: The patient has been admitted for acute in-hospital inpatient rehabilitation. He will be involved in interdisciplinary acute inpatient rehabilitation program with goal maximizing his functional independence, so he can hopefully return back to his prior living situation. Prognosis is reasonably good. He does have the tolerance for an acute rehabilitation therapy program. He does have the gold return back home with his . He does have the multiple medical comorbidities and will need to multiple crm consultant physicians to continue to follow with him. He meets the medical necessity criteria. He meets the diagnostic criteria. He warrants acute in-hospital inpatient rehabilitation. Please see the full documentation as noted. ADDENDUM Date of service is 12/21/2019 and not 12/20/2019. By: 1230 1250 Chang Dwyer MD /[facility]
--- NOTE | ~2019-12-20 | HC ---
[facility] [place] [address] CONSULTATION Name: MARIBELL SUTTON Room #: 504-1 ADM IN M.R.#: [id number] Admission: 12/20/19 Attend Phys: Chang Dwyer MD Discharge: Date of : 37 Report #: [id number] THIS REPORT FOR: cc: ELBA Joy family physician/PCP ELBA Joy family physician/PCP Han Longoria PhD ~ DATE OF SERVICE: 01/01/2020 NEUROBEHAVIORAL STATUS EXAM AGE: 84. ATTENDING PHYSICIAN: Chang Dwyer MD BODY BUILDER APPRENTICE: Han Longoria, PhD CLINICAL PRESENTATION: The patient is an 84-year-old male admitted to the rehabilitation unit for a comprehensive inpatient rehabilitation program. He was initially admitted to [facility] with weakness and shortness of breath and diagnosed with an acute hypoxic respiratory failure secondary to pneumonia, atrial fibrillation with rapid ventricular rate, acute renal insufficiency secondary to dehydration and acute encephalopathy. The patient carries a diagnosis of Parkinson's disease with deep brain stimulator placement. His assessment on admission to the rehabilitation unit was acute metabolic encephalopathy, Parkinson's disease with deep brain stimulator, acute hypoxic respiratory failure secondary to pneumonia, atrial fibrillation with rapid ventricular rate, acute renal insufficiency, degenerative arthritis with history of a prior total knee replacement, hypertension, hyperlipidemia, coronary artery disease with coronary artery bypass grafting. Neuropsychological consultation was requested to provide assistance in the assessment of cognitive and emotional status and to provide recommendations. Prior to this most recent event, the patient was living with the assistance of his in their home. He has 3 children. The patient is a college graduate. 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 He reports concern about a nephew who is currently on a ventilator. TECHNIQUES UTILIZED: Clinical interview, review of medical records, staff consultation and behavioral observation, mini mental status exam 2 standard version, clock drawing and verbal fluency assessment. [facility] [address] [place] [address] CONSULTATION Name: MARIBELL SUTTON Eliezer Room #: 504-1 [facility]#: [id number] Admission: 12/20/19 Attend Phys: Chang Dwyer MD Discharge: Date of : 37 Report #: [id number] EXAMINATION FINDINGS: The patient was alert and cooperative with the assessment. He reports having been initially confused and disoriented upon his initial hospitalization and was unsure of the exact reason for his treatment. He does not present with an aphasia. His thoughts are logical and goal oriented. There is no evidence of thought disorder. He does not report auditory or visual hallucinations. He describes his symptoms to include difficulty with word finding, anxiety. He does not report difficulty with memory, sleep, appetite or depression. The patient had discontinued driving. He reports his had been managing his medication. Prior history of treatment for depression is reported. His performance on the MMSE 2 brief version is extremely low with a raw score of 11/16. The patient is very hard of hearing and required repetition for initial registration. He was 4/5 for orientation to time and 5/[address] He was 1/3 for immediate recall of 3 items after a brief time delay and distraction. Performance was extremely low on the standard version of the MMSE 2. He achieved a raw score of 21/30. He was 3/5 for serial sevens, 2/2 for naming, 1/1 for repetition, 3/3 for comprehension. He could read and follow a single command. The patient was unable to copy a simple geometric design. He also had difficulty in writing a sentence. Clock drawing is within normal limits. Letter fluency was in the borderline range with a T score of 34 and percentile rank of 5. Category fluency was extremely low with a T score of 24 and percentile rank of less than 1. Overall, total fluency was extremely low with a T score of 25 and percentile rank of 1. The patient is hard of hearing, but presenting with decreased initial registration along with memory deficits. Variability in attention and concentration and severe impairment in visual spatial perception. Higher level executive functioning is also showing impairment in function. DIAGNOSTIC IMPRESSION: 1. 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 2. Adjustment disorder with anxious mood. RECOMMENDATIONS: The patient will likely require increased supervision at home. He will need help with the management of medication, finances and nutrition. A structured and supervised environment will likely provide the assistance that will assist his overall adjustment. His functioning will likely be somewhat higher when he is in a more familiar environment and hearing deficits will have [address] [address] CONSULTATION Name: MARIBELL SUTTON Room #: 504-1 ADM IN M.R.#: [id number] Admission: 12/20/19 Attend Phys: Chang Dwyer MD Discharge: Date of : 37 Report #: [id number] less of an impact on general function. Thank you very much for allowing me to provide the consultation on this patient. By: 2056 1125 Han Longoria, PhD /nt
--- NOTE | ~2019-12-20 | H ---
[facility] [place] [address] HISTORY AND PHYSICAL Name: MARIBELL SUTTON Room #: 504-1 ADM IN M.R.#: [id number] Admission: 12/20/19 Attend Phys: Chang Dwyer MD Discharge: Date of : 37 Report #: [id number] THIS REPORT FOR: cc: ELBA - Benita family physician/PCP FAM - No family physician/PCP Chang Dwyer MD ~ CC: Chang ARREOLA physician/PCP DATE OF SERVICE: 12/21/2019 ADDENDUM Date of service is 12/21/2019 and not 12/20/2019. By: 1218 1243 Chang Dwyer MD /nt
[~2019-12-20 13:58] MED LIST changes: +AMOX TR-K CLV1 EAC4 PO; +CARVEDILOL3.125 MG PO; +PROTONIX 20 MG20 M1 PO; +RESTORIL7.5 M1 PO; +SENNA PLUS TAB1 EACH PO; +VITAMIN B-121000 MC2 SUBLING; +ZOLOFT100 MG PO
--- NOTE | 2019-12-20 16:22 | NUR ---
chart review. polina going up to acute rehab today. cm visited with him before via phone call and he is pala with hearing aids, if turn up vol on phone, he was able to cont with verbal communication . intro to rehab and dcp. he reported lives in 3 story house with . 5 step into house, 3 levels. has stair glide. has walker and wheel chair. no longer drives. [facility] and glasses. been to rehab in past and hh, unable to recall who had for hh. have son and daughter that in area. noted in chart been to [facility] and [facility] in past. will cont following as needed for dc needs.
[2019-12-20 16:36] VITALS: BP 189/89
--- NOTE | 2019-12-20 17:43 | NUR ---
PATIENT 84 YEAR OLD MALE ARRIVED FROM CCU [facility] [place]. ALERT AND ORIENTED X 4 - ADMITTED WITH METABLIC ENCEPHALOPATY AND AMS DUE TO OXYGEN HYPOXIA. RESPIRATORY ISSUES - PATIENT STABLIZED AND BROUGHT TO [address] [place] [address] FOR REHAB. SUFFERS FROM PARKINSON AND HAS TREMORS IN LOWER EXTREMITES. REPORT STATED AMBULATES WITH ASSISTANCE AND SHUFFLES ALONG. PATIENT HAS NO PAIN WHEN ASSESSED. INCONTINENT OF URINE BUT USES URINAL - PATIENT VERY ASTUTE AND ABLE TO MAKES NEEDS KNOWN. HEART STRONG AND STEADY AND LUNGS CLEAR ON AUSCULATATION. STATED HAD BM TODAY. PATIENT BLOOD PRESSURE RUNS HIGH GIVEN SCHEDULED COREG MA CARBIDOPA AT 1700 - PATIENT CALM AND PLEASANT. HAD EPISODE OF INCONTINENCE ON ARRIVAL AND LINENS CHANGES. PATIENT TAKES MEDICATINS WHOLE WITHOUT INCIDENCE. PULSES STRONG PEDIAL AND RADIAL WHEN TAKEN.
[2019-12-20 19:30] VITALS: BP 173/86
[2019-12-20 20:47] VITALS: BP 173/86
--- NOTE | 2019-12-20 23:23 | NUR ---
PATIENT HAS BEEN ALTERNATING BETWEEN SITTING UP ON SIDE OF BED AND LAYING IN BED. HE IS A/0X3-4 BUT FORGETFUL. HE IS UP WITH GAIT BELT AND WALKER WITH ASSIST X 1-2. HE HAS TREMORS IN HIS LEGS WHEN STANDING AND SHUFFLES HIS FEET D/T PARKINSONS. PATIENT IS WEAK IN BLE'S AND UNSTEADY. PATIENT IS INCONTINENT AT TIMES. HE USES URINAL AT BEDSIDE WHEN IN BED. HE HAS A SALINE LOCK IN RIGHT FOREARM AND ONE IN LEFT FOREARM. BOTH ARE WITHOUT REDNESS AND SWELLING AND CLEAR DRESSING INTACT. PATIENT WAS ADMITTED TO REHAB THIS EVENING AROUND 1730. PATIENT'S VS'S STABLE. BP SLIGHTLY ELEVATED AT 170/93. HIS LAST BM WAS TODAY 12/20/19. PATIENT REFUSED HIS SUPPER TONIGHT. TRIED ENCOURAGING HIM TO EAT SOMETHING AND OFFERED SNACKS WITHOUT SUCCESS. PATIENT STATES HE HAS NO APPETITE. PATIENT TOOK HIS MEDS WHOLE WITH ICE WATER TONIGHT. PATIENT HAS RIGHT HIP ARTHRITIS THAT FLARES UP AND CAUSES DISCOMFORT AT TIMES. NO WOUNDS SEEN. BRUISE NOTED ON PATIENT'S LEFT UPPER ARM. PATIENT IS IMPULSIVE AND FORGETS AT TIMES TO CALL FOR HELP AND TRIES TO SIT UP ON SIDE OF BED BY HIMSELF. HE IS A YELLOW FALL RISK AND UNSTEADY ON HIS FEET. PATIENT HAS DENIED PAIN TONIGHT. HE IS RESTING AND WATCHING TV AND DOZING OFF AND ON. BED IN LOW POSITION AND BED ALARM IS ON. CONTINUING TO MONITOR.
[2019-12-21 05:31] LABS: HEMATOCRIT 35.1 % (42.0-52.0); HEMOGLOBIN 11.7 gm/dL (14.0-18.0); MCH 33.5 pg (26.0-34.0); MCHC 33.2 g/dL (28.0-37.0); MCV 100.8 fL (80.0-100.0); RBC 3.48 mil/uL (4.50-6.00); RDW 15.9 % (10.5-14.5); WBC 11.4 thou/uL (4.0-11.0)
[2019-12-21 05:42] LABS: CALCIUM 9.3 mg/dL (8.5-10.1); POTASSIUM 3.5 mmol/L (3.5-5.1)
--- NOTE | 2019-12-21 07:54 | NUR ---
ASSUMED CARE AT 0700. PATIENT IS ALERT AND ORIENTED X4, BUT FORGETFUL AT TIMES. PATIENT IS [place], WITH HEARING AIDS. LUNGS ARE CLEAR AND DEMINISHED. ABD IS SOFT WITH BSX4. VOIDS PER URINAL, BUT HAS ISSUES WITH SPILLING URINal r/t HIS PARKINSONS DISEASE. PATIENT C/O LEG WEAKNESS AND TREMMORS. PATIENT DÍAZ'S, INTERNET TECHNOLOGY MANAGER ARE EQUAL. FALL AND SAFETY PROTOCOLS IN PLACE. DENIES PAIN AT THIS TIME. EVALS IN PROGRESS. S.L. PATENT IN HIS LEFT AND RIGHT FORARMS. WILL CONTINUE TO MONITER.
[2019-12-21 08:00] VITALS: BP 157/78
--- NOTE | 2019-12-21 08:13 | NUR ---
WOUND CARE CONSULT DISCUSSED STATUS W/ DON ELECTRIC RANGE ASSEMBLER, STATES PT HAS NO WOUNDS BUT WOULD BENEFIT FROM LOW AIR LOSS PUMP TO BED, WILL ORDER, ALSO ADVISED TO RECONSULT WOUND TEAM IF ANY WOUNDS ARE DISCOVERED.
--- NOTE | 2019-12-21 13:08 | NUR ---
Nutrition: pt admitted with recent PNA, acute metabolic encephalopathy and debility to rehab unit. Admission orders consult received. PMH: Parkinsons, brain stimulator, baseline dementia. Eating 50-100% of meals with the exception of yesterday, no intake recorded. pt reports appetite is "getting better". Observed 75% of lunch consumed. Latest weight of 207# is error. Prior weights 180# which is UBW per pt for some time. Folate deficiency, supplement started. Also on vitamin D with level pending. Assisted pt with meal ordering however was satisfied with choices. Pt voices familiarity with heart healthy diet and voiced no questions. Consider low nutrition
--- NOTE | 2019-12-21 13:27 | NUR ---
team meeting, reccommendation: working with octavio and u shaun walker. re team with possible dc end of next week.
[2019-12-21 16:55] VITALS: BP 113/53
[2019-12-21 19:15] VITALS: BP 86/50
--- NOTE | 2019-12-21 23:45 | NUR ---
PT ALERT AND ORIENTED X 4, FORGETFUL. STANDS AT SIDE OF BED TO USE URINAL WITH ASSIST X 2. PT TAKES MEDS WITH WATER WITHOUT DIFFICULTY. SALINE LOCKS IN LFA AND RFA INTACT. PT DENIES PAIN OR DISCOMFORT. BED ALARM ON FOR SAFETY. PT CHECKED ON HOURLY ROUNDS.
[2019-12-22 08:00] VITALS: BP 92/48
--- NOTE | 2019-12-22 13:28 | NUR ---
ASSUMED CARES AT 0700. PT AWAKE, ALERT AND ORIENTED *4. DENIES PAIN AT THIS TIME. SOFT BP, COREG WITHHELD, WILL CONTINUE TO MONITOR. PT CONTINUES TO HAVE TREMORS BUE AND BLE, ASSISTANCE PROVIDED WITH MEALS NEEDED. PT IS NOW ON HONEY-THICKENED FLUIDS, ASPIRATION PRECAUTIONS MAINTAINED. PT UP WITH 1 MIN-MOD ASSIST, GB AND WALKER/W/C. PARTICIPATED WELL IN ALL THERAPIES AND CONTINUES TO PROGRESS TOWARDS DC GOALS. Q1H VISUAL CHECKS. CALL LIGHT WITHIN REACH. FALL PRECAUTIONS IN PLACE.
[2019-12-22 16:23] VITALS: BP 134/66
[2019-12-22 19:20] VITALS: BP 120/62
--- NOTE | 2019-12-23 01:36 | NUR ---
TURNED TO SIDE, INCONTINENT OF URINE AT 2100, BED CHANGED AND PATIENT GIVEN PILLS WHILE SITTING AT EDGE OF BED. ABLE TO SPOON PILLS OUT OF APPLESAUCE ONE AT A TIME AND DRINK HONEY THICK WATER AFTERWARDS DESPITE TREMORS.
[2019-12-23 08:00] VITALS: BP 95/47
--- NOTE | 2019-12-23 10:57 | NUR ---
Assumed care of patient at 0700. Alert and oriented X4. Has slight tremors upper and lower extremeties. Using thickened liquids. Pleasant. Participating in therapies. Taking medication with applesauce. Coreg held due to BP at 95/47. Remains on Fall precautions. Asking for assistance as needed.
[2019-12-23 19:29] VITALS: BP 125/59
--- NOTE | 2019-12-24 01:55 | NUR ---
12-23-19 CARE TRANSFERRED 1899. 1929 PT AAOX3, VSS, RR EVEN AND NONLABORED ON RA. PT REPORTS PAIN IN LOWER BACK AND SCALES 7 ON 0-10 SCALE. PT DENIES ANY NEW CONCERNS. ZERO S/S OF ACUTE DISTRESS NOTED, PT WILL CONTINUE TO BE MONITOR PER 5NR PROTOCOL.
[2019-12-24 08:00] VITALS: BP 119/54
--- NOTE | 2019-12-24 11:30 | NUR ---
PATIENT'S RT HEARING AID IS NOT IN PATIENT'S EAR, AND IS NOT FOUND IN HIS ROOM. PATIENT STATED THAT HE REMEMBERS HAVING IT LAST NIGHT, BUT CANNOT RECALL WHAT HAPPENED TO IT, HE FELL ASLEEP WITH IT IN HIS HAND AND AWAKENED THIS MORNING WITHOUT IT. LINENS AND ROOM HAS BEEN SEARCHED, AND THE KITCHEN AND HOUSEKEEPING SERVICES HAVE BEEN NOTIFIED THAT THIS HEARING AID NEEDS TO BE FOUD. NOTIFIED PT'S DAUGHTER KARON, AND SHE STATED THAT HE HAS A VALUE STREAM LEADER SERVICE ON HIS PHONE THAT MAY BE HELPFUL IN LOCATING THE HEARING AID. SHE IS BRINGING HIS PHONE, AND WE WILL USE THIS FEATURE TO SEE IF WE CAN LOCATE IT. PATIENT HAS ALSO ASKED ABOUT THE IV'S IN HIS ARMS. HE IS NOT ON ANY IV MEDS, AND WE ARE REMOVING THESE, THERE ARE NO DATES ON THE DRESSINGS, AND THEY HAVE BEEN PRESENT AT LEAST SINCE ADMISSION TO REHAB ON 12/19. RT FOREARM AND LEFT FOREARM IV SITES ARE CLEAN AND THERE IS NO REDNESS NOTED.
--- NOTE | 2019-12-24 13:12 | NUR ---
NM WITNESSED PATIENT AT THE SINK IN HIS ROOM, FILLING A PLASTIC CUP WITH THIN TAP WATER AND DRINKING IT. NM ADDRESSED THIS WITH HIM, REMINDED HIM THAT HE IS ON HONEY THICKENED LIQUIDS TO REDUCE THE RISK OF ASPIRATION, OR "DRINKS GOING INTO YOUR LUNGS," AND PT VERBALIZED UNDERSTANDING. NM ASKED PT TO HAND HER THE CUP, AND HE REFUSED, STATING THAT HE MAY NEED IT LATER FOR SOMETHING, AND PLACING IT IN HIS SUITCASE. NM PLACED A PLASTIC BAG OVER PATIENT'S SINK, AND REQUESTED THAT THE TECH CALL MAINTENANCE TO TEMPORARILY TURN OFF THE WATER, AND INFORMED THE TREATMENT TEAM THAT THE PATIENT HAS ATTEMPTED TO DRINK FROM THE SINK, AND MAY ATTEMPT AGAIN. PT IS IMPULSIVE AND WE WILL CONTINUE TO CLOSELY MONITOR HIM, WELL OFFER HONEY THICKENED LIQUIDS HOURLY TO PREVENT DEHYDRATION. NOTED ALL TO THE WALLCOVERING TEXTURER LEAD, KRAIG FOWLER, WELL AND SHE HAS MESSAGED THIS TO THE PATIENT'S WALLCOVERING TEXTURER.
--- NOTE | 2019-12-24 14:01 | NUR ---
NOTED TO BE RESTLESS AT TIMES THIS SHIFT-MULTIPLE SMALL CONCERNS I.E CALLED NURSE TO MROOM TO MOVE SPOON FROM ONE DRAWER TO THE NEXT. HAS BEEN REQUESTING A PEN OR PENCIL MULTIPLE TIMES AND PROVIDED WITH PENCIL X2 BUT IS CURRENTLY UNABLE TO LOCATE. DID REPORT PAIN TO JOINTS ELBOW,KNEE,NECK ETC INITALLY THIS AM RATING PAIN A 7 ON 1-10 SCALE. NORCO7.5/325 GIVEN PO PRN AT APPROX 0915 WITH REST OF AM MEDICations and was able to mwork with PT/OT WITHOUT REPORTED PAIN/DISCOMFORT. DID ASSIST PT WITH SHOWER AND TOLERATED THIS WELL, REMAINS HIGH FALLS RISK D/T UNSTEADY GAIT/IMPULSIVE BEHAVIOR. BS ACTIVE X 4. APPETITE GOOD-WORKED WITH SPEECH AT MEALTIME AND PER REPORT DID TAKE SOME THIN LIQUIDS WITH BREAKFAST-TOLERATED WELL CXR ORDERED TO ASSESS FOR ASPIRTATION.USED URINAL X1 SO FAT THIS SHIFT.L WAS INCONTINENT OF LARGE AMOUNT OF URINE DURING NIGHT
--- NOTE | 2019-12-24 14:22 | NUR ---
PATIENT'S DAUGHTER ARRIVED WITH REMOTE FOR THE BRAIN STIMULATOR AND THIS HAS BEEN PLACED IN THE TOP DRAWER OF THE BEDSIDE DRESSER. EDUCATION REGARDING THICKENED LIQUIDS WAS PROVIDED TO THE PATIENT AND HIS DAUGHTER, AND NM DEMONSTRATED THE PROCESS OF THICKENING TO HONEY CONSISTENCY.
--- NOTE | 2019-12-24 15:00 | NUR ---
PER PT'S DTR KARON, PT'S NEUROSURGEON DR. CALI AT [facility], PHONE [phone] OR [phone], MAY BE ABLE TO ANSWER QUESTION REGARDING USE OF VITAL STIM FOR SWALLOWING WHEN PT HAS THE BRAIN STIMULATOR, IF IT IS SAFE TO USE WHEN THE STIMULATOR IS TURNED OFF, ON, ETC WELL ANY OTHER QUESTIONS OR CONCERNS RELATED TO THE DBS. THIS HAS BEEN MESSAGED TO DR. BURKETT.
--- NOTE | 2019-12-24 18:46 | NUR ---
REPORTING ELBOW,BACK,HIP AND KNEE PAIN-NORCO7.5/325MG GIVEN PO PRN WITH VERBALIZED GOOD RESULTS-SITTING AT BEDSIDE TABLE-RATING PAIN A 0 ON 1-10 SCALE. RESTLESS,CONFUSED RUMMAGING IN BEDSIDE TABLE DRAWERS STATING HE HAS TO CALL MD TO SCHEDULE HERNIA SURGERY. INCONTINENT OF LARGE AMOUNT URINE BRIEF CHANGED AND REPOSITIONED FOR COMFORT
[2019-12-24 19:36] VITALS: BP 102/60
--- NOTE | 2019-12-25 01:57 | NUR ---
ASSUMED CARES AT 1900. PT AWAKE, ALERT AND ORIENTED*4. VITALS REMAIN STABLE. PT C/O MILD LOWER BACK, RIGHT ELBOW AND LEFT SHOULDER PAIN, DICLOFENAC CREAM APPLIED SCHEDULED. PT UP IN THE W/C AND WANTED TO HANG AROUND THE NURSE'S DESK BEFORE BED. IN BED AT 2100 AFTER TAKING PILLS. SLEPT SOUNDLY ALL NIGHT. PT UP WITH 1 MOD ASSIST, GB AND WALKER AND TOLERATED WELL. Q1H VISUAL CHECKS. CALL LIGHT WITHIN REACH. FALL PRECAUTIONS IN PLACE
[2019-12-25 07:00] VITALS: BP 128/58
--- NOTE | 2019-12-25 09:57 | NUR ---
ASSUMED CARE AT 0700. PATIENT IS ALERT AND ORIENTED X4, BUT FORGETFUL. PATIENT HAS SEVERE PARKINGSON DISEASE. PATIENT IS HYDABURG. PATIENT CONTINUES ON ABT FOR UTI. PATIENT IS INCONTINENT OF URINE. LUNGS ARE DEMINISHED. ABD IS SOFT WITH BSX4. UP TO THE DINING ROOM FOR MEALS. PATIENT CHANGED TO HONEY THICK LIQUIDS. FALL AND SAFETY PROTOCOLS IN PLACE. DENIES PAIN. CONTINUES TO PROGRESS SLOWLY TOWARDS D/C GOALS. WILL CONTINUE TO MONITER.
[2019-12-25 19:28] VITALS: BP 108/53
--- NOTE | 2019-12-26 00:08 | NUR ---
PT ALERT AND ORIENTED X 4. INCONT LAURA URINE. ALSO VOIDS PER URINAL. PT TAKES MEDS IN APPLESAUCE WITHOUT DIFFICULTY. PT C/O PAIN IN HIS BACK. HYDROCODONE GIVEN AT HS AND PT SLEEPING UPON REASSESSMENT. CPAP ON DURING THE NIGHT. BED ALARM ON FOR SAFETY. PT APPEARS TO BE SLEEPING ON HOURLY ROUNDS.
[2019-12-26 07:30] VITALS: BP 124/63
--- NOTE | 2019-12-26 12:27 | NUR ---
ASSUMED CARE OF PT AT 0700. PT IS A&OX4 AND VITAL SIGNS ARE STABLE. PT DENIES PAIN. PT AMBULATED 150 FEET WITH MOD ASSIST AND WALKER. PT REQUIRED SUPERVISION AND ASSISTANCE WITH EATING. PT IS IMPULSIVE AT TIMES AND ATTEMPTS TO SEF TRANSFER IN ROOM. BRADYCARDIA NOTED ON ASSESSMENT AND DIGOXIN AND CARVEDILOL HELD AT THIS TIME. FALL PRECAUTIONS IN PLACE AND NURSING WILL CONTINUE TO MONITOR.
[2019-12-26 19:08] VITALS: BP 131/78
--- NOTE | 2019-12-27 01:19 | NUR ---
RESTING WELL AFTER PAIN MED AT HS, TURNED TO SIDE POSITION WITH PILLOWS TO HIS SHOULDERS AND BACK, VOLTAREN TO LOW BACK, USING URINAL WITH ENCOURAGEMENT, ASSISTANCE REMOVING DETURES. BED ALARM, NEAR DESK (ROOM 504)
[2019-12-27 05:10] LABS: ABSOLUTE NEUTROPHILS 10.5 thou/uL (1.4-8.2); BASOPHILS 0.5 % (0.0-2.0); EOSINOPHILS 4.8 % (0.0-3.0); HEMATOCRIT 33.6 % (42.0-52.0); LYMPHOCYTES 18.5 % (24.0-44.0); MCH 33.6 pg (26.0-34.0); MCHC 32.8 g/dL (28.0-37.0); MCV 102.3 fL (80.0-100.0); MONOCYTES 7.1 % (1.0-8.0); PLATELET COUNT 426 thou/uL (150-400); POLYS 69.1 % (36.0-66.0); RBC 3.29 mil/uL (4.50-6.00); RDW 15.6 % (10.5-14.5); WBC 15.2 thou/uL (4.0-11.0)
[2019-12-27 05:26] LABS: CREATININE 1.5 mg/dL (0.7-1.3); MAGNESIUM 2.1 mg/dL (1.8-2.4); POTASSIUM 4.9 mmol/L (3.5-5.1)
[2019-12-27 07:09] VITALS: BP 133/68
[2019-12-27 07:17] VITALS: BP 121/79
--- NOTE | 2019-12-27 14:23 | NUR ---
ASSUMED CARES AT 0700. PT AWAKE, ALERT AND ORIENTED*4 BUT FORGETFUL. C/O RIGHT GROIN, RIGHT ELBOW AND LEFT SHOULDER PAIN, PAIN MEDICATION ADMINISTERED NEEDED. ASPIRATION PRECAUTIONS MAINTAINED, PT REMAINS ON HONEY THICK LIQUIDS AND TOLERATED WELL. GROIN AREA CLEANED AND NYSTATIN POWDER APPLIED. PT UP WITH 1 MIN ASSIST, GB AND WALKER. Q1H VISUAL CHECKS. CALL LIGHT WITHIN REACH. FALL PRECAUTIONS IN PLACE.
[2019-12-27 19:09] VITALS: BP 128/91
[2019-12-27 20:00] VITALS: BP 125/72
--- NOTE | 2019-12-28 04:15 | NUR ---
Assumed care of patient this pm shift. Patient alert and oriented x4. C/O generalized pain prior to pain medicatiton. Aspiration precautions in place. Patient on honey thick liquids. Patient takes medications with applesauce. Medication adherent. Affect euthymic. Patient requests urinal as needed. Call light within reach. Falls precautions in place. We will continue to monitor per hospital policy.
[2019-12-28 08:10] VITALS: BP 113/59
--- NOTE | 2019-12-28 10:15 | NUR ---
received phone call from daughter evelyn, she passed on that pt jeramie mccoy went out to dinner with son and granddaughter on friday, now granddaughter is positive with covid and has s/s. mom going to get tested, has to quarantine, and brother and his family have to quarantine as well. dad asked me to bring stuff up that mom brought over to the house on friday but not going to be coming up until know moms results. we are all worried about his mental health and now i can not visit because don't want to expose anyone at the hospital. please help him understand why i can not visit right now per daughter evelyn. cm passed on to unite nurse maintenance mechanic supervisor. will cont following as needed for dc needs.
--- NOTE | 2019-12-28 10:15 | NUR ---
Alert and orientated X4. Calm, cooperative and compliant. Encouraging fluids. Able to stand with walker, becomes unsteady easily. Breath sounds clear t/o, bilaterally equal. Reg HR auscultated. Color pink with brisk capillary refill and palpable peripheral pulses +2/+4. Yellow urine per urinal. Active bowel sounds over soft, rounded abdomen. Large, brown, formed stool per toilet. Periarea slightly reddened, cleaned and nystatin applied. Ate most of breakfast this AM. Currently in room talking on phone without s/o distress.
--- NOTE | 2019-12-28 12:31 | NUR ---
Nutrition followup: Pt continues on rehab unit with PNA, acute metabolic encephalopathy and debility. Intake is good on modified diet, mechanically altered chopped, honey thick liquids, eating 75-100% of meals. ST following pt and awaiting neurosurgery ok for vital stim possibily with brain stimulator turned off. Vitamin D 24.4. Continues on supplement, also folic acid. Most recent weight down 4# from usual. Unsure of accuracy as intake has been good. Will follow trends.
[2019-12-28 16:31] VITALS: BP 115/61
[2019-12-28 19:00] VITALS: BP 147/60
--- NOTE | 2019-12-29 01:09 | NUR ---
UP TO TOILET WITH CONTACT GUARD ASSIST FOR BM ATTEMPT, VOIDED AGAIN LATERUSING URINAL. REQUESTED HOME MED LIST AND DISCOVERED THAT HE IS TAKING SERTRALINE IN THE MORNING AND HE IS PRETTY SURE HE TAKES IT AT HS WHEN HE IS HOME, WILL EXPLORE CHANGING THE TIME GIVEN STARTING TOMORROW SINCE HE HAS ALREADY HAD HIS DOSE FOR 12/27. TEMAZEPAM SLEEPING PILL PER REQUEST. TAKING ALL PILLS WITH APPLESAUCE, HONEY THICK LIQUIDS STILL ANNOY HIM AND HE BLAMES THEM FOR SORE THROAT AND TONGUE. HE WOULD LIKE TO GO HOME, STATES HE IS READY AND THAT IT DOESN'T MAKE ANY SENSE KEEPING HIM HERE.
[2019-12-29 09:59] VITALS: BP 129/47
--- NOTE | 2019-12-29 10:04 | NUR ---
REQUESTED AND RECEIVED TYLENOL 500MG PO P-RN WITH AM MEDS AT 0900-REPORTS BACK PAIN RATED A 6 0N 1-10 SCALE DENIES NEED FOR STRONGER PAIN MED STATING "IT MAKES ME TOO SLEEPY" HAD DIFFICULTY FEEDING SELF THIS AM D/T TREMOR-NEEDS ENCOURAGEMENT AND PROMPTING TO COMPLETE ADLS INDEPENDENTLY. BP THIS AM 129/47-PT DENIES DIZZINESS/LIGHTHEADNESS ETC. APPETITE GOOD-TAKES PO FLUIDS WELL AND WILL ASKE FOR COFFEE,JUICES,TEA ETC AFTER CONSUMING ALL ON TRAY.
[2019-12-29 19:02] VITALS: BP 99/49
--- NOTE | 2019-12-30 02:19 | NUR ---
STATES BACK FEELS BETTER THAN USUAL AND THAT HIS TONGUE AND THROAT ARE FEELING BETTER. INFORMED THAT HE NOW HAS A COUPLE THINGS AVAILABLE, BUT HE WANTED TO HOLD OFF FOR NOW. USING URINAL, APPRECIATED TIME SWITCH OF ZOLOFT TO HS. SLEEPING PILL AND CPAP REQUESTED AND INITIATED APPROX 2229, SLEEPING SINCE THEN EXCEPT ONCE WHEN HE ROLLED OVER TO SLEEP ON HIS OTHER SIDE AFTER AWAKE TO QUICKLY USE URINAL
[2019-12-30 05:40] LABS: ABSOLUTE NEUTROPHILS 10.5 thou/uL (1.4-8.2); BASOPHILS 0.5 % (0.0-2.0); EOSINOPHILS 4.2 % (0.0-3.0); HEMATOCRIT 32.3 % (42.0-52.0); HEMOGLOBIN 10.8 gm/dL (14.0-18.0); LYMPHOCYTES 19.9 % (24.0-44.0); MCH 34.1 pg (26.0-34.0); MCHC 33.3 g/dL (28.0-37.0); MCV 102.6 fL (80.0-100.0); PLATELET COUNT 455 thou/uL (150-400); POLYS 68.4 % (36.0-66.0); RBC 3.15 mil/uL (4.50-6.00); RDW 15.5 % (10.5-14.5); WBC 15.3 thou/uL (4.0-11.0)
[2019-12-30 05:58] LABS: CREATININE 1.4 mg/dL (0.7-1.3); POTASSIUM 4.5 mmol/L (3.5-5.1)
[2019-12-30 08:00] VITALS: BP 154/69
--- NOTE | 2019-12-30 10:39 | NUR ---
ASSUMED CARE THIS AM AT APPROX 0715. PT ASLEEP AT THAT TIME. NOTED TO BENCH EXAMINER AND MACHINERY REPAIR MAINTENANCE SUPERVISOR LATER IN THE AM CONCERNS R/T LIDOCAINE, CEPACOL, AND SWALLOWING PROBLEMS THAT THIS PATIENT HAS. ORDERS DISCUSSED AND WILL BE EVALUATED FOR APPROPRIATENESS PER BENCH EXAMINER. PATIENT UP IN DINING ROOM FOR BREAKFAST, AND TOOK MEDS WITHOUT DIFFICULTY.
--- NOTE | 2019-12-30 15:06 | NUR ---
HAS BEEN NAPPING ON/OFF IN RECLINER BETWEEN THERAPY SESSIONS THROUGHOUT SHIFT. EATING WELL AND ASKS FOR SECONDS-TAKES PO FLUIDS WELL. DOES REPORT SDME ELBOW AND BACK PAIN BUT REFUSES OFFERS OF TYLENOL OR PAIN MEDS "I JUST WANT THAT CREAM" USING URINAL AND NO EPISODES OF INCONTINENCE NOTED OR REPORTED.
[2019-12-30 21:15] VITALS: BP 147/63
--- NOTE | 2019-12-31 03:16 | NUR ---
Assumed pt's care this pm shift. Pt alert and oriented x4. SOme confusion. Forgetfulness. Meds given per emar. VSS on RA. Denies pain this shift. Pt voids via urinal. SLeeping well this shift. CPAP in place. Fall precaution in place. Call light within reach. Hourly roundings made. Will continue to monitor.
[2019-12-31 07:35] VITALS: BP 150/75
--- NOTE | 2019-12-31 13:30 | NUR ---
ASSUMED CARES AT 0700. PT AWAKE, ALERT AND ORIENTED*4 BUT FORGETFUL. DENIES PAIN AT THIS TIME. VITALS REMAIN STABLE. SPIRITUAL CARE AND DAUGHTER IN ROOM WITH PATIENT TO BREAK THE NEW ABT HIS AILING/DYING COUSIN, PATIENT TOOK THE NEWS WELL (WILL CONTINUE TO MONITOR). REMAINS ON NECTAR THICK FLUIDS AND TOLERATED WELL. ASPIRATION PRECAUTIONS MAINTAINED. PT UP WITH 1 MIN ASSIST, GB AND WALKER AND TOLERATED WELL. Q1H VISUAL CHECKS. CALL LIGHT WITHIN REACH. FALL PRECAUTIONS IN PLACE.
[2019-12-31 14:05] VITALS: BP 112/53
--- NOTE | 2019-12-31 16:24 | PLAN ---
[facility] [place] [address] REHAB UNIT PLAN OF CARE Name: MARIBELL SUTTON Room #: 504-1 ADM IN M.R.#: [id number] Admission: 12/20/19 Attend Phys: Chang Dwyer MD Discharge: Date of : 39 Report #: [id number] THIS REPORT FOR: //name// CC: Chang Dwyer [facility] physician/PCP DATE OF SERVICE: 12/22/2019 PROGRESS NOTE/OVERALL PLAN OF CARE SUBJECTIVE: The patient was seen back today in followup. He is in no distress. Temperature 97.4, pulse 63, respirations 18, blood pressure is 157/78. He noted today that his PCP is Dr. Arroyo. He is in no distress. Temperature 36.7, pulse 68, respirations 20, blood pressure 92/48. He is pleasant. No focal calf swelling. Transfers are mod assist with gait, max assist 40 feet. He does have significant retropulsion with heavy reliance pushing lower extremities against the bed to remain upright. In occupational therapy, he has mod assist for bathing, mod assist for toileting, max assist for upper body dressing, mod assist for lower body dressing. Severe cognitive deficits are noted. Moderate auditory comprehension, severe memory deficits. ASSESSMENT: 1. Acute metabolic encephalopathy. 2. Parkinson's disease with brain stimulator. 3. Acute hypoxic respiratory failure secondary to pneumonia. 4. Atrial fibrillation with rapid ventricular rate, now rate controlled. 5. Acute renal insufficiency, resolved. 6. Degenerative arthritis with history of total knee replacement. 7. Hypertension. 8. Hyperlipidemia. 9. Coronary artery disease with prior history of coronary artery bypass grafting. PLAN: The overall plan of care includes the followin. Estimated length of stay is probably going to be 10-14 days. 2. Medical prognosis is reasonably good. 3. Anticipated interventions includes the interdisciplinary acute inpatient rehabilitation program. 4. Anticipated functional outcomes would be for the patient to become modified independent with transfers, mobility, ADLs and improve as far as cognition and hopefully return back to his prior home setting. 5. Discharge destination would be back to the home setting where he lives with his . 6. Expected therapy by discipline includes PT, OT and speech 1 hour per day [address] [address] REHAB UNIT PLAN OF CARE Name: HERMANMARIBELL Eliezer Room #: 504-1 ADM IN [facility].#: [id number] Admission: 12/20/19 Attend Phys: Chang Dwyer MD Discharge: Date of : 39 Report #: [id number] each five days a week throughout the duration of the acute inpatient rehabilitation stay. The patient's prognosis for significant practical improvement within a reasonable period of time appears good. Given the patient's complex medical condition and risk of further medical complications, rehabilitation services cannot be safely provided at the lower level of care such as a halfway facility. <ELECTRONICALLY SIGNED> By: Chang Dwyer MD 12/31/19 1624 [id number] Chang Dwyer MD /WILLIE
[2019-12-31 19:30] VITALS: BP 89/43
--- NOTE | 2020-01-01 03:41 | NUR ---
CPAP OFF NOW PER PATIENT REQUEST, HAD BEEN ON SINCE 2299. MEDS GIVEN WITH APPLESAUCE AND SIPS OF NECTAR THICK LIQUIDS. USING URINAL CONTINENTLY SO FAR THIS SHIFT. NO NOSE BLEED THIS SHIFT.
[2020-01-01 08:00] VITALS: BP 114/64
--- NOTE | 2020-01-01 12:30 | NUR ---
ASSUMED CARE AT 0700. PATIENT IS ALERT AND ORIENTED X4, BUT FORGETFUL. PATIENT IS ALGAACIQ AND HAS 1 HEARING AID. LUNGS ARE CLEAR AND DEMINISHED. ABD IS SOFT WITH BSX4. UP TO THE BATHROOM TO VOID LAURA COLORED URINE AND LARGE BM. PATIENT HAS TREMORS R/T HIS PARKINSONS DISEASE. UP IN THE CHAIR FOR MEALS. FALL AND SAFETY PROTOCOLS IN PLACE. C/O MEI. MEDICATED WITH PRN PAIN MED. CONTINUES TO PROGRESS TOWARDS D/C GOALS. WILL CONTINUE TO MONITER.
[2020-01-01 19:53] VITALS: BP 126/75
--- NOTE | 2020-01-02 00:54 | NUR ---
PT ASSESSMENT COMPLETED AND VSS. MEDS GIVEN ORDERED AND WELL TOLERATED. FALL PRECAUTIONS IN PLACE. VOIDING LARGE AMOUNT PER URINAL. ASST WITH REPOSITION FOR COMFORT. CPAP ON AT HS. SLEEPING WELL. WILL CONTINUE TO MONITOR FREQUENTLY.
[2020-01-02 08:00] VITALS: BP 133/70
[2020-01-02 12:20] LABS: FOLIC ACID 14.5 ng/mL (8.6-58.9)
--- NOTE | 2020-01-02 14:08 | NUR ---
ASSUMED CARES AT 0700. PT AWAKE, ALERT AND ORIENTED*4. C/O LOWER BACK, RIGHT ELBOW AND RIGHT WRIST PAIN, ACETAMINOPHEN AND VOLTAREN GEL ADMINISTERED NEEDED. PT REMAINS ON NECTAR THICK LIQUIDS AND TOLERATED WELL. ASPIRATION PRECAUTIONS MAINTAINED. PT UP WITH 1 MIN ASSIST, GB AND WALKER AND TOLERATED WELL. Q1H VISUAL CHECKS. CALL LIGHT WITHIN REACH. FALL PRECAUTIONS IN PLACE
[2020-01-02 20:00] VITALS: BP 91/43
--- NOTE | 2020-01-03 02:53 | NUR ---
APPRECIATES COLD NECTAR THICK LIQUIDS, BUT WISHES THEY WERE THINNER. UNHAPPY THAT WE HAVE DISCOVERED THE NEED FOR THEM, AND THAT HE IS ANEMIC, "I'VE NEVER HAD ANY TROUBLE BEFORE". HE WORRIES THAT EVERYBODY IS MAD AT HIM, AND DOES NOT APPRECIATE BEING RUSHED. REASSURED THAT HE IS WELL-LOVED AND THAT WE REALLY SHOULD NOT BE RUSHING HIM AND SHOULD BE ENCOURAGING HIM TO DO MUCH HE CAN FOR HIMSELF TOWARDS IMPROVING HIS ADLs. CONTINENT WITH URINAL TONIGHT. IS REFUSING HIS CPAP TONIGHT, HE FELT SUDDENLY HOT AND TRAPPED IN IT LAST NIGHT AND IS THINKING THAT IT HAD AT LEAST SOMETHING TO DO WITH A BAD DREAM ABOUT HIS NEPHEW.
[2020-01-03 08:00] VITALS: BP 148/97
--- NOTE | 2020-01-03 08:25 | NUR ---
cm forward message from daughter and son to dr guzman rt question rt meds and his aggression. cm called and left message for daughter to call cm back.
--- NOTE | 2020-01-03 08:48 | NUR ---
cm visited with daughter and son via phone call. they both had concerns about the aggression and medication question. daughter still unable to say if his going to be able to assist him at home now or if going to require more assistance prior to going home. son stated facility and one that doesnt have covid would be better. he been to [facility] so that is 1st, then [facility] would be 2n, [facility] 3rd and [facility] 4th"/son and daughter.
[2020-01-03 11:22] LABS: ABSOLUTE RETIC COUNT 0.0345 10^6/uL; OBSERVED RETIC COUNT 0.97 % (0.6-2.6)
[2020-01-03 11:28] LABS: ABSOLUTE NEUTROPHILS 9.4 thou/uL (1.4-8.2); BASOPHILS 1.1 % (0.0-2.0); EOSINOPHILS 4.5 % (0.0-3.0); HEMATOCRIT 34.6 % (42.0-52.0); HEMOGLOBIN 11.7 gm/dL (14.0-18.0); LYMPHOCYTES 19.9 % (24.0-44.0); MCH 34.8 pg (26.0-34.0); MCHC 33.8 g/dL (28.0-37.0); MCV 102.9 fL (80.0-100.0); MONOCYTES 9.4 % (1.0-8.0); PLATELET COUNT 508 thou/uL (150-400); POLYS 65.1 % (36.0-66.0); RBC 3.37 mil/uL (4.50-6.00); RDW 16.3 % (10.5-14.5); WBC 14.4 thou/uL (4.0-11.0)
[2020-01-03 11:31] LABS: CALCIUM 9.6 mg/dL (8.5-10.1); CREATININE 1.3 mg/dL (0.7-1.3); MAGNESIUM 2.3 mg/dL (1.8-2.4); POTASSIUM 4.4 mmol/L (3.5-5.1)
[2020-01-03 11:46] LABS: TSH 2.839 uIU/mL (0.358-3.740)
--- NOTE | 2020-01-03 11:59 | NUR ---
cm called [facility], they are reviewing and will let us know if they can accept for snf. [facility] 2nd phone call, they can not take any resident that are not resident from [facility] community.
--- NOTE | 2020-01-03 14:07 | NUR ---
ASSUMED CARES AT 0700. PT AWAKE, ALERT AND ORIENTED*4 BUT FORGETFUL. C/O MILD PAIN IN RIGHT ELBOW AND RIGHT WRIST, VOLTAREN GEL APPLIED SCHEDULED. VITALS REMAIN STABLE. PT HAD VIDEO SWALLOW TODAY AND WAS UPGRADED TO THIN LIQUIDS, AND TOLERATES WELL. COVID TEST DONE PER DC PLANS TOMORROW AWAITING RESULTS. PT UP WITH 1 MIN ASSIST, GB AND WALKER AND TOLERATED WELL. Q1H VISUAL CHECKS. CALL LIGHT WITHIN REACH. FALL PRECAUTIONS IN PLACE.
--- NOTE | 2020-01-03 15:18 | NUR ---
[facility] called, they can accept for skilled rehab, need new covid test rt his has been over a week old. "let family know we have 1 coid in isolation"/[facility]. cm spoke with his son and he is ok with him going to [facility], " i will talk with sister and mom and let you know final decision"/ zander son. will cont following as needed for dc needs.
[2020-01-03 16:37] VITALS: BP 118/57
[2020-01-03 19:14] VITALS: BP 134/64
[2020-01-03 20:06] LABS: HAPTOGLOBIN 261 mg/dL (38-329)
--- NOTE | 2020-01-04 02:05 | NUR ---
PAIN IN RIGHT ELBOW GREATER THAN HIS USUAL LOW BACK PAIN, APPRECIATES VOLTAREN TO BOTH AREAS. TAKING THE INITIATIVE TO TAKE OUT HIS OWN TEETH AND HEARING AID. USING URINAL
[2020-01-04 07:17] VITALS: BP 174/80
[2020-01-04] MEDS ORDERED: FOLIC ACID1 MG PO (08:08)
[2020-01-04] MEDS ORDERED: TYLENOL EXTRA500 MG PO (08:08)
[2020-01-04] MEDS ORDERED: NEURONTIN600 MG PO (08:08)
[2020-01-04] MEDS ORDERED: MIRALAX17 GM PO (08:08)
--- NOTE | 2020-01-04 10:03 | NUR ---
Nutrition F/U: pt continues on rehab unit with PNA, acute metabolic encephalopathy and debility. PO intakes continue to be good on Regular diet and VFSS performed 01/02 and able to be upgraded to thin liquids. Eating 60-100% of meals, 75-100% of supplements. Despite good PO, noted ~1.1lb wt loss in the past 1 week. Unsure of accuracy as intakes have been adequate. No significant changes this week. Will continue interventions at low nutrition risk and will f/u per protocol.
--- NOTE | 2020-01-04 10:24 | NUR ---
chart copy requested. bedside nurse to call [facility] # [phone]. covid -. daughter evelyn called, she had many question and [facility] " i am having my brother zander call the facility to see if they have all therapy he needs. he cant go home now scared he would be aggressive with mom. no sure i like rating on go[facility] webside and review for there short term rehab. how do they know what dad is going to need.?"/evelyn. amado re-education that when referral sent out incl therapy notes. facility review and if cant meet patient needs then the facility say no. " ok thanks for all you do and what did dr say yesterday?"/daughter. let her know that MD will need to discuss that with . " ok thank you"/evelyn.
[2020-01-04 10:56] VITALS: BP 115/59
[2020-01-04 14:07] LABS: HEMOGLOBIN 11.7 g/dL (13.0-17.7)
--- NOTE | 2020-01-04 15:15 | NUR ---
PT DISCHARGING TODAY TO [facility] FOR SKILLED STAY FAXED DC ORDERS/SUMMARY TO FACILITY SPOKE WITH DENNY IN ADM SHE RECEIVED ORDERS AND ARRANGED TRANSPORT BY VAN FOR 1545 LEFT MSG WITH PT'S (TERRY) OF DC AND TIME OF TRANSPORT AND FACILITY WANTED TO NAKE SURE SHE WAS AWARE OF 2 COVID CASES AT FACILITY. UNIT NOTIFIED AND CHART COPY PER US. RN TO CALL REPORT TO [phone].
--- NOTE | 2020-01-04 18:15 | NUR ---
Alert and orientated X4. Calm, pleasant and cooperative. Upset through most of the day because he wanted to be discharged home instead of to nursing facility. Ate meals independently. Used urinal several times independently. Standby assistance with other cares. Breath sounds clear t/o, bilaterally equal. Reg HR auscultated. Color pink with brisk capillary refill and palpable peripheral pulses. Yellow urine per urinal. Active bowel sounds over soft, rounded abdomen. Report called to [facility]. Discharged per WC via van after discharge instructions. No s/o distress. Left unit at 1600.
[2020-01-05 16:06] LABS: GLOBULIN TOTAL 3.7 g/dL (2.2-3.9); M-SPIKE Not Observed g/dL (Not Observed)
[2020-01-05 19:07] LABS: ANA INTERPRETATION Positive (())
== END 2020-01-04 17:33 | DRG 70 ==
PROVIDERS: Hospitalist; Internal Medicine Hematology & Oncology; Nurse Practitioner; Nurse Practitioner Family; ADMIT Physical Medicine & Rehabilitation; ATTEND Physical Medicine & Rehabilitation
DX: G93.41 Metabolic encephalopathy (principal); J96.01 Acute respiratory failure with hypoxia; J18.9 Pneumonia, unspecified organism; N17.9 Acute kidney failure, unspecified; G20 Parkinson's disease; R13.10 Dysphagia, unspecified; I48.91 Unspecified atrial fibrillation; M19.90 Unspecified osteoarthritis, unspecified site; I10 Essential (primary) hypertension; E78.5 Hyperlipidemia, unspecified; I25.10 Atherosclerotic heart disease of native coronary artery without angina pectoris; Z95.1 Presence of aortocoronary bypass graft
CPT/HCPCS: 10112

== ENCOUNTER → 2020-05-08 | Outpatient (CLI) | payer OTHER, MEDICARE ==
[~2020-05-08] MED LIST changes: +FOLIC ACID1 MG PO; +NEURONTIN600 MG PO; +TYLENOL EXTRA500 MG PO
== END ==
LOC: SJCVC 13:52
PROVIDERS: ATTEND Internal Medicine
DX: R94.31 Abnormal electrocardiogram [ECG] [EKG] (principal); I48.21 Permanent atrial fibrillation; I25.10 Atherosclerotic heart disease of native coronary artery without angina pectoris; I11.0 Hypertensive heart disease with heart failure; I50.32 Chronic diastolic (congestive) heart failure; G20 Parkinson's disease; G47.33 Obstructive sleep apnea (adult) (pediatric); E78.5 Hyperlipidemia, unspecified; I65.23 Occlusion and stenosis of bilateral carotid arteries; M10.9 Gout, unspecified; Z87.440 Personal history of urinary (tract) infections; Z79.899 Other long term (current) drug therapy; Z87.891 Personal history of nicotine dependence; Z72.89 Other problems related to lifestyle; Z79.82 Long term (current) use of aspirin; Z95.1 Presence of aortocoronary bypass graft; Z88.5 Allergy status to narcotic agent; Z88.8 Allergy status to other drugs, medicaments and biological substances; Z88.2 Allergy status to sulfonamides

== ENCOUNTER → 2020-06-14 | Outpatient (CLI) | payer OTHER, MEDICARE | LOC: SJCVCIMAG 09:28 | PROVIDERS: ATTEND Podiatrist Foot & Ankle Surgery | DX: I70.202 Unspecified atherosclerosis of native arteries of extremities, left leg (principal) ==

== ENCOUNTER → 2020-06-20 | Outpatient (CLI) | payer OTHER, MEDICARE | LOC: SJCVC 14:20 | PROVIDERS: ATTEND Nuclear Medicine Nuclear Cardiology | DX: I73.9 Peripheral vascular disease, unspecified (principal); I25.10 Atherosclerotic heart disease of native coronary artery without angina pectoris; I77.9 Disorder of arteries and arterioles, unspecified; I48.21 Permanent atrial fibrillation; I11.0 Hypertensive heart disease with heart failure; I50.9 Heart failure, unspecified; E78.00 Pure hypercholesterolemia, unspecified; G47.33 Obstructive sleep apnea (adult) (pediatric); Z95.1 Presence of aortocoronary bypass graft; Z87.891 Personal history of nicotine dependence; Z72.89 Other problems related to lifestyle; Z79.82 Long term (current) use of aspirin; Z79.899 Other long term (current) drug therapy; Z88.2 Allergy status to sulfonamides; Z88.5 Allergy status to narcotic agent; Z88.8 Allergy status to other drugs, medicaments and biological substances ==

== ENCOUNTER → 2020-06-22 | Outpatient (CLI) | payer OTHER, MEDICARE ==
[~2020-06-22] VITALS: Ht 172.7 cm; Wt 78.9 kg
[2020-06-22 07:45] VITALS: BP 144/65
[2020-06-22 08:20] LABS: HEMATOCRIT 34.6 % (42.0-52.0); MCH 31.5 pg (26.0-34.0); MCHC 31.9 g/dL (28.0-37.0); MCV 98.8 fL (80.0-100.0); RBC 3.5 mil/uL (4.50-6.00); RDW 17.9 % (10.5-14.5); WBC 12.9 thou/uL (4.0-11.0)
[2020-06-22 08:25] LABS: CALCIUM 9.3 mg/dL (8.5-10.1); CREATININE 1.2 mg/dL (0.7-1.3); POTASSIUM 4.8 mmol/L (3.5-5.1)
== END | disposition home or self-care (01) ==
LOC: CATH 10:47
PROVIDERS: ATTEND Nuclear Medicine Nuclear Cardiology
DX: I70.222 Atherosclerosis of native arteries of extremities with rest pain, left leg (principal); I70.1 Atherosclerosis of renal artery; I11.0 Hypertensive heart disease with heart failure; I50.9 Heart failure, unspecified; E78.5 Hyperlipidemia, unspecified; I48.91 Unspecified atrial fibrillation; G47.30 Sleep apnea, unspecified; G20 Parkinson's disease; M10.9 Gout, unspecified; M19.90 Unspecified osteoarthritis, unspecified site; Z98.890 Other specified postprocedural states; Z79.899 Other long term (current) drug therapy; Z96.653 Presence of artificial knee joint, bilateral; Z20.822 Contact with and (suspected) exposure to COVID-19; Z98.52 Vasectomy status; Z95.1 Presence of aortocoronary bypass graft; Z87.891 Personal history of nicotine dependence; Z88.2 Allergy status to sulfonamides; Z88.8 Allergy status to other drugs, medicaments and biological substances

== ENCOUNTER → 2020-10-26 | Outpatient (CLI) | payer OTHER, MEDICARE | LOC: SJCVCIMAG 09-27 12:23 | PROVIDERS: ATTEND Internal Medicine | DX: I65.23 Occlusion and stenosis of bilateral carotid arteries (principal); I70.203 Unspecified atherosclerosis of native arteries of extremities, bilateral legs; I77.9 Disorder of arteries and arterioles, unspecified; I65.21 Occlusion and stenosis of right carotid artery; I11.0 Hypertensive heart disease with heart failure; I50.9 Heart failure, unspecified; E78.00 Pure hypercholesterolemia, unspecified; G47.33 Obstructive sleep apnea (adult) (pediatric); E78.5 Hyperlipidemia, unspecified; Z87.891 Personal history of nicotine dependence; Z72.89 Other problems related to lifestyle; Z79.82 Long term (current) use of aspirin; Z79.899 Other long term (current) drug therapy; Z88.8 Allergy status to other drugs, medicaments and biological substances; Z88.2 Allergy status to sulfonamides ==

== ENCOUNTER → 2020-11-01 | Outpatient (CLI) | payer OTHER, MEDICARE | LOC: SJCVC 14:25 | PROVIDERS: ATTEND Internal Medicine | DX: R94.31 Abnormal electrocardiogram [ECG] [EKG] (principal); I73.9 Peripheral vascular disease, unspecified; I77.9 Disorder of arteries and arterioles, unspecified; I48.21 Permanent atrial fibrillation; I11.0 Hypertensive heart disease with heart failure; I50.32 Chronic diastolic (congestive) heart failure; E78.00 Pure hypercholesterolemia, unspecified; M10.9 Gout, unspecified; G20 Parkinson's disease; E78.5 Hyperlipidemia, unspecified; Z87.891 Personal history of nicotine dependence; Z72.89 Other problems related to lifestyle; Z79.82 Long term (current) use of aspirin; Z79.899 Other long term (current) drug therapy; Z88.2 Allergy status to sulfonamides; Z88.8 Allergy status to other drugs, medicaments and biological substances; Z88.1 Allergy status to other antibiotic agents; G47.33 Obstructive sleep apnea (adult) (pediatric); Z99.89 Dependence on other enabling machines and devices ==